=== PATIENT | male | born 1945 | race Caucasian/White ===

== ENCOUNTER 2017-01-24 12:38 | Day surgery (SDC) | payer MEDICARE ==
[~2017-01-24 12:38] MED LIST: ASPI-110 PO; CARA1SUS3 PO; DICL0.1S RIGHT EYE; GLYB2.5T3 PO; MAGICADU2 SWISH-SWAL; METF1000 PO; METO100T PO; MORP1TAB24 PO; PANT40TA3 PO
[2017-01-24] MEDS ORDERED: SITA1TAB2 PO (13:26)
[2017-01-24 13:29] VITALS: BP 132/64; PULSE 74; RESP 20; TEMP 96.7; O2SAT 100
--- NOTE | 2017-01-24 14:19 | PD.RAD ---
Post Procedure Progress Note Pre Procedure Diagnosis: (1) Encounter for care related to Port-a-Cath Post Procedure Diagnosis: (1) Encounter for care related to Port-a-Cath Procedure Date: Jan 24, 2017 Supervising Radiologist: Som Gillespie JR Proceduralist/Assist: RT Goldie(R)() Anesthesia: Other Plan of Activity Patient to Unit: [facility]OPU Patient Condition: Good Additional Comments: Port injection shows no change from prior. Tip of catheter against wall of innominate vein. Will not allow blood return. No fibrin sheath. Ok to use. See PACS Report for procedural detail/treatment Jr. Jose Miguel,Som Paris MD Jan 24, 2017 14:19
[2017-01-24] MEDS ORDERED: IOHEXOL 350 MG/ML 50 ML BTL (for RAD DIAG) ONE (14:20)
[2017-01-24 14:25] VITALS: BP 121/57; PULSE 74; RESP 20; O2SAT 97
--- NOTE | 2017-01-24 16:05 | RADRPT ---
EXAM DATE/TIME: 01/24/2017 13:25 [facility] COMPARISON: CENTRAL VENOUS ACCESS DEVICE PATENCY W/SVC, June 29, 2016, 14:26. INDICATIONS : Patient with a history of non-functioning port. Unable to get blood return. Assess catheter. Catheter was placed at an outlying institution. MEDICAL HISTORY : Metastatic non small lung carcinoma severe esophagitis esophageal stricture DM HTN SURGICAL HISTORY : Hernia repair Port placement Peg tube placement Esophageal dilation Cataract removal Colonscopy Lung biopsy Appendectomy ENCOUNTER: Subsequent ACUITY: 1 year PAIN SCORE: 8/10 LOCATION: Back FLUORO TIME: 0.5 minutes IMAGE SERIES: 5 CONTRAST: 10 cc Omnipaque (iohexol) 350 PROCEDURE : 1. Access of Cvqibs-z-lqic. 2. Port patency injection. The risks, benefits and alternatives to the procedure were explained and verbal and written consent w as obtained. The patient was placed supine. The port was prepped in sterile fashion. Full sterile t echnique was used, including cap, mask, sterile gloves and gown, and a large sterile sheet. Hand hyg iene and 2% chlorhexidine prep was utilized per protocol for cutaneous antisepsis with appropriate dr y time for site. The previously placed port was accessed and positive contrast was injected for evaluation. Injection demonstrates no change from the prior study. The tip of the catheter abuts the right lateral wall at the junction of the innominate and brachiocephalic veins. This will prevent good blood aspiration. T he catheter tip is within the vascular space. No extravasation is observed to suggest a leak. The cat heter was flushed with heparin solution prior to and Martinez needle removal. CONCLUSION: No change with the tip of the catheter abutting the wall of the junction of the innominate vein and b rachiocephalic vein. This will prevent good blood return. To attempt to get blood return consideratio n could be made to patient position changes starting with right lateral decubitus. This may or may no t allow blood return. In order to regain aspiration ability with this catheter the tip will need to b e repositioned appropriately to the cavoatrial junction. Som Gillespie Jr., MD on January 24, 2017 at 15:59 Board Certified Radiologist. This report was verified electronically.
[2017-02-16] MEDS ORDERED: LOPE2CAP PO (09:59)
[2017-02-16] MEDS ORDERED: COMFSUS2 (09:59)
[2017-02-16] MEDS ORDERED: ONDA1TAB16 (09:59)
[2017-02-16] MEDS ORDERED: DILA2TAB2 PO (11:30)
== END 2017-01-24 14:30 | disposition home or self-care (01) ==
LOC: HROP 12:38 → HRIP 12:40 → HROP 14:30
PROVIDERS: ATTEND Internal Medicine Hematology & Oncology
DX: Z45.2 Encounter for adjustment and management of vascular access device (principal); C34.90 Malignant neoplasm of unspecified part of unspecified bronchus or lung; E11.9 Type 2 diabetes mellitus without complications; I10 Essential (primary) hypertension
CPT/HCPCS: 36598; J1642; Q9967

== ENCOUNTER 2017-03-14 19:31 | Inpatient (IN) | payer MEDICARE ==
[~2017-03-14] VITALS: Ht 170.2 cm; Wt 58.0 kg
[~2017-03-14 19:31] MED LIST changes: -CARA1SUS3 PO; +COMFSUS2; +DILA2TAB2 PO; +LOPE2CAP PO; -MAGICADU2 SWISH-SWAL; +ONDA1TAB16; +SITA1TAB2 PO
[2017-03-14 19:34] VITALS: BP 119/55; PULSE 94; RESP 18; TEMP 98.5; O2SAT 99
--- NOTE | 2017-03-14 19:46 | PD ---
Physical Exam Time Seen by Provider: 19:43 Narrative 71 y/o male presents for evaluation of dislodged feeding tube. Happened this evening. Vital signs reviewed. Seen at triage desk. Awaiting bed placement. Data Data Last Documented VS Vital Signs Date Time Temp Pulse Resp B/P Pulse Ox O2 Delivery O2 Flow Rate FiO2 03/14/17 19:34 98.5 94 18 119/55 99 Room Air [facility] Medical Record Reviewed: Yes Supervised Visit with CAMERON: Bertram Morfin March 14, 2017 19:46
[2017-03-14 20:44] VITALS: BP 114/55; PULSE 84; RESP 18; O2SAT 99
[2017-03-14] MEDS ORDERED: [UNRECOGNIZED DRUG - CODE] PO (20:56)
[2017-03-14] MEDS ORDERED: SODIUM CHLOR 0.9% 1000 ML INJ 1,000 ML IV SCH (21:04)
[2017-03-14] MEDS ORDERED: ONDANSETRON HCL 4 MG/2 ML VIAL IV PUSH ONE (21:15)
--- NOTE | 2017-03-14 21:25 | PD ---
HPI Chief Complaint: GI Complaint Time Seen by Provider: 21:20 Travel History International Travel<30 days: No Contact w/Intl Traveler<30days: No Traveled to known affect area: No History of Present Illness HPI 71-year-old male that presents to the ED for evaluation of possible dislodgment of his feeding tube. Patient states that he has a feeding tube secondary to esophagitis with strictures that needs to be dilated about every 2-3 months. Patient also has cancer and has reduced intake of food by mouth. Patient continues to eat some solids but states that for the past couple months he's not been eating as much [place]. Patient states that he's had the tube since mid 2015. Per patient she's been using his feedings 3 times a day. Today he had a feeding around 5:00 and he decided that he was given a go to bed and when he was about to go to his bed he noted that he was leaking fluid and his tube was somewhat dislodged. It has not been used since. He states having some discomfort in the area. She also states that he's been somewhat nauseous. Per patient he had a bowel movement yesterday but no bowel movement today. Per patient he is passing gas. He has an allergy to ibuprofen and sulfa. Per patient the foot that sleeking is yellow. Per patient has minimal discomfort 2 out of 10. He states that Dr. Vieira placed the tube. He denies any fevers chills or sweats. PFSH Past Medical History Cancer: Yes (LUNG/BONE/BRAIN) Cardiovascular Problems: Yes (BP) High Cholesterol: Yes Chemotherapy: Yes (LAST CHEMO 03/03/2017) Diabetes: Yes (TYPE 2) Patient Takes Glucophage: Yes Endocrine: No Gastrointestinal Disorders: Yes (LESION REMOVED, NOT CANCEROUS/NAUSEA/CANT EAT) Genitourinary: No Hepatitis: No Hiatal Hernia: No Hypertension: Yes Immune Disorder: No Implanted Vascular Access Dvce: Yes Musculoskeletal: No Neurologic: Yes (CA METASTISIS BRAIN, LUNGS, BONE) Psychiatric: No Reproductive: No Respiratory: Yes (LOW ENERGY,SOB) Thyroid Disease: No Influenza Vaccination: Yes Past Surgical History Abdominal Surgery: Yes (colectomy 2011, INCISIONAL HERNIA REPAIR 2014, APPY 1970) AICD: No Appendectomy: Yes Arteriovenous Shunt: No Cardiac Surgery: No Ear Surgery: No Endocrine Surgery: No Eye Surgery: Yes (cataract removal right eye 2012) Genitourinary Surgery: No Insulin Pump: No Joint Replacement: No Neurologic Surgery: No Pacemaker: No Thoracic Surgery: Yes (INFUSAPORT) Other Surgery: Yes Social History Alcohol Use: No Tobacco Use: No (QUIT 1991) Substance Use: No Allergies-Medications (Allergen,Severity, Reaction): Coded Allergies: Sulfa (Unverified Allergy, Severe, LIP SWELLING, 03/14/17) Ibuprofen (Verified Allergy, Unknown, "DOESN'T REMEMBER", 03/14/17) pt states made his potassium level extremely raise Reported Meds & Prescriptions Reported Meds & Active Scripts Active Reported Levorphanol (Levorphanol Tartrate) 2 Mg Tab 4 Mg PO Q6HR PRN Comfort Gel Liq (Mvzgxbfg-Wvmfwxmud-Fueosgnhaza Liq) 200-200-20 Mg/5 Ml Susp Ondansetron (Ondansetron HCl) 4 Mg Tab Loperamide (Loperamide HCl) 2 Mg Cap 2 Mg PO DIRECTED PRN One capsule after each loose stool. Not to exceed 8 capsules per day. Januvia (Sitagliptin Phosphate) 100 Mg Tab 100 Mg PO HS Pantoprazole (Pantoprazole Sodium) 40 Mg Tab 40 Mg PO DAILY Morphine ER (Morphine Sulfate) 15 Mg Tab 15 Mg PO BID Diclofenac Opth Drops Unknown Strength Soln Unknown Dose RIGHT EYE BID Aspirin 81 (Aspirin) 81 Mg Tabdr 81 Mg PO DAILY Glyburide Unknown Strength Tab Unknown Dose PO DAILY Take with meals at the same time each day Metoprolol Tartrate 100 Mg Tab 100 Mg PO BID Metformin (Metformin HCl) Unknown Strength Tab Unknown Dose PO BIDPC With meals Review of Systems Except as stated in HPI: all other systems reviewed are Neg Physical Exam Narrative GENERAL: SKIN: Warm and dry. HEAD: Atraumatic. Normocephalic. EYES: Pupils equal and round. No scleral icterus. No injection or drainage. ENT: No nasal bleeding or discharge. Mucous membranes pink and moist. Tongue is midline. No uvula deviation. NECK: Trachea midline. No JVD. CARDIOVASCULAR: Regular rate and rhythm. No murmurs, S3, S4. RESPIRATORY: No accessory muscle use. Clear to auscultation. Breath sounds equal bilaterally. GASTROINTESTINAL: Abdomen soft, patient does have hardness noted on the right lower quadrant of the abdomen, feeding tube in place on the left upper quadrant. Appears to be not completely dislodged but some of it appears to be off leaking yellow fluid from the sites of the tube. Somewhat tender but not exquisitely tender., nondistended. Hepatic and splenic margins not palpable. MUSCULOSKELETAL: Extremities without clubbing, cyanosis, or edema. No obvious deformities. NEUROLOGICAL: Awake and alert. No obvious cranial nerve deficits. Motor grossly within normal limits. Five out of 5 muscle strength in the arms and legs. Normal speech. PSYCHIATRIC: Appropriate mood and affect; insight and judgment normal. Data Data Last Documented VS Vital Signs Date Time Temp Pulse Resp B/P Pulse Ox O2 Delivery O2 Flow Rate FiO2 03/14/17 22:07 95 Room Air 03/14/17 20:44 84 18 114/55 03/14/17 19:34 98.5 Orders Complete Blood Count With Diff (03/14/17 21:04) Comprehensive Metabolic Panel (03/14/17 21:04) Lipase (03/14/17 21:04) Lactic Acid (03/14/17 21:04) Prothrombin Time / Inr (Pt) (03/14/17 21:04) Act Partial Throm Time (Ptt) (03/14/17 21:04) Urinalysis - C+S If Indicated (03/14/17 21:04) Iv Access Insert/Monitor (03/14/17 21:04) Ecg Monitoring (03/14/17 21:04) Oximetry (03/14/17 21:04) NPO (03/14/17 21:04) Sodium Chlor 0.9% 1000 Ml Inj (Ns 1000 M (03/14/17 21:04) Ondansetron Inj (Zofran Inj) (03/14/17 21:15) Admit Order (Ed Use Only) (03/14/17 23:13) Ct Abd/Pel W/O Iv Contrast (03/14/17 ) Labs Laboratory Tests Test 03/14/17 21:55 White Blood Count 12.8 TH/MM3 Red Blood Count 3.00 MIL/MM3 Hemoglobin 8.5 GM/DL Hematocrit 26.7 % Mean Corpuscular Volume 89.1 FL Mean Corpuscular Hemoglobin 28.2 PG Mean Corpuscular Hemoglobin 31.7 % Concent Red Cell Distribution Width 15.9 % Platelet Count 297 TH/MM3 Mean Platelet Volume 9.0 FL Neutrophils (%) (Auto) 78.8 % Lymphocytes (%) (Auto) 5.7 % Monocytes (%) (Auto) 14.7 % Eosinophils (%) (Auto) 0.6 % Basophils (%) (Auto) 0.2 % Neutrophils # (Auto) 10.1 TH/MM3 Lymphocytes # (Auto) 0.7 TH/MM3 Monocytes # (Auto) 1.9 TH/MM3 Eosinophils # (Auto) 0.1 TH/MM3 Basophils # (Auto) 0.0 TH/MM3 CBC Comment DIFF FINAL Differential Comment Prothrombin Time 11.6 SEC Prothromb Time International 1.0 RATIO Ratio Activated Partial 29.8 SEC Thromboplast Time Sodium Level 139 MEQ/L Potassium Level 6.3 MEQ/L Chloride Level 107 MEQ/L Carbon Dioxide Level 25.8 MEQ/L Anion Gap 6 MEQ/L Blood Urea Nitrogen 66 MG/DL Creatinine 1.97 MG/DL Estimat Glomerular Filtration 34 ML/MIN Rate Random Glucose 118 MG/DL Lactic Acid Level 2.6 mmol/L Calcium Level 9.4 MG/DL Total Bilirubin 0.3 MG/DL Aspartate Amino Transf 61 U/L (AST/SGOT) Alanine Aminotransferase 42 U/L (ALT/SGPT) Alkaline Phosphatase 239 U/L Total Protein 7.7 GM/DL Albumin 2.8 GM/DL Lipase 82 U/L [facility] Medical Decision Making Medical Screen Exam Complete: Yes Emergency Medical Condition: Yes Medical Record Reviewed: Yes Interpretation(s) CBC Diagram 03/14/17 21:55 LFTS and lipase WNL BMP showed elevated BUN and creatinine, worst from early february. Differential Diagnosis Feeding tube issue versus medical advice seizure versus obstruction versus overfeeding versus gastroparesis versus cancer Narrative Course 71-year-old male that presents to the ED for evaluation of possible feeding tube dislodgment. Patient was properly examined by me and my attending Dr. Lua. Patient was found appears to have possible obstruction. Patient had a feeding around 5:00 and he still has a lot of fluid which is since that is what coming out of the tube. Tube appears to be slightly dislodged but still within the stoma and the fluid that seems to be coming out seems to be from the stomach. This time recommendations for doing imaging and labs. Patient was given Zofran and fluids as well. Patient will have flushing and suctioning of the contents of the stomach to help avoid more leakage. Patient and family in agreement with this plan. Labs and imaging showed acute kidney injury, leukocystosis and hyperkalmeia. Case discussed with my attending Dr Lua who recommends admission for evaluation of feeding tube and electrolyte abnormalities. Dr Ruvalcaba agrees to admit. Diagnosis Primary Impression: Hyperkalemia Additional Impressions: Acute kidney injury Feeding tube dysfunction Qualified Code: T85.598A - Feeding tube dysfunction, initial encounter Admitting Information Admitting Physician Requests: Admit Iam Cortes March 14, 2017 21:24
[2017-03-14 22:07] VITALS: O2SAT 95
[2017-03-14 22:29] LABS: AUTOMATED NEUTROPHIL # 10.1 TH/MM3 (1.8-7.7); BASOPHIL % 0.2 % (0.0-2.0); EOSINOPHIL # 0.1 TH/MM3 (0-0.4); EOSINOPHIL % 0.6 % (0.0-4.0); HEMATOCRIT 26.7 % (39.0-51.0); HEMO FLAGS DIFF FINAL; LYMPH % 5.7 % (9.0-44.0); LYMPHOCYTE # 0.7 TH/MM3 (1.0-4.8); MEAN CELL VOLUME 89.1 FL (80.0-100.0); MEAN CORPUSCULAR HEMOGLOBIN 28.2 PG (27.0-34.0); MEAN CORPUSCULAR HGB CONC 31.7 % (32.0-36.0); MONO % 14.7 % (0.0-8.0); NEUT % 78.8 % (16.0-70.0); PLATELET COUNT 297 TH/MM3 (150-450); RED CELL DISTRIBUTION WIDTH 15.9 % (11.6-17.2); WHITE BLOOD COUNT 12.8 TH/MM3 (4.0-11.0)
--- NOTE | 2017-03-14 22:30 | PD ---
Data Data Last Documented VS Vital Signs Date Time Temp Pulse Resp B/P Pulse Ox O2 Delivery O2 Flow Rate FiO2 03/14/17 22:07 95 Room Air 03/14/17 20:44 84 18 114/55 03/14/17 19:34 98.5 Orders Complete Blood Count With Diff (03/14/17 21:04) Comprehensive Metabolic Panel (03/14/17 21:04) Lipase (03/14/17 21:04) Lactic Acid (03/14/17 21:04) Prothrombin Time / Inr (Pt) (03/14/17 21:04) Act Partial Throm Time (Ptt) (03/14/17 21:04) Urinalysis - C+S If Indicated (03/14/17 21:04) Iv Access Insert/Monitor (03/14/17 21:04) Ecg Monitoring (03/14/17 21:04) Oximetry (03/14/17 21:04) NPO (03/14/17 21:04) Sodium Chlor 0.9% 1000 Ml Inj (Ns 1000 M (03/14/17 21:04) Ondansetron Inj (Zofran Inj) (03/14/17 21:15) Admit Order (Ed Use Only) (03/14/17 23:13) Ct Abd/Pel W/O Iv Contrast (03/14/17 ) Labs Laboratory Tests Test 03/14/17 21:55 White Blood Count 12.8 TH/MM3 Red Blood Count 3.00 MIL/MM3 Hemoglobin 8.5 GM/DL Hematocrit 26.7 % Mean Corpuscular Volume 89.1 FL Mean Corpuscular Hemoglobin 28.2 PG Mean Corpuscular Hemoglobin 31.7 % Concent Red Cell Distribution Width 15.9 % Platelet Count 297 TH/MM3 Mean Platelet Volume 9.0 FL Neutrophils (%) (Auto) 78.8 % Lymphocytes (%) (Auto) 5.7 % Monocytes (%) (Auto) 14.7 % Eosinophils (%) (Auto) 0.6 % Basophils (%) (Auto) 0.2 % Neutrophils # (Auto) 10.1 TH/MM3 Lymphocytes # (Auto) 0.7 TH/MM3 Monocytes # (Auto) 1.9 TH/MM3 Eosinophils # (Auto) 0.1 TH/MM3 Basophils # (Auto) 0.0 TH/MM3 CBC Comment DIFF FINAL Differential Comment Prothrombin Time 11.6 SEC Prothromb Time International 1.0 RATIO Ratio Activated Partial 29.8 SEC Thromboplast Time Sodium Level 139 MEQ/L Potassium Level 6.3 MEQ/L Chloride Level 107 MEQ/L Carbon Dioxide Level 25.8 MEQ/L Anion Gap 6 MEQ/L Blood Urea Nitrogen 66 MG/DL Creatinine 1.97 MG/DL Estimat Glomerular Filtration 34 ML/MIN Rate Random Glucose 118 MG/DL Lactic Acid Level 2.6 mmol/L Calcium Level 9.4 MG/DL Total Bilirubin 0.3 MG/DL Aspartate Amino Transf 61 U/L (AST/SGOT) Alanine Aminotransferase 42 U/L (ALT/SGPT) Alkaline Phosphatase 239 U/L Total Protein 7.7 GM/DL Albumin 2.8 GM/DL Lipase 82 U/L [facility] Medical Record Reviewed: Yes Supervised Visit with CAMERON: Yes Interpretation(s) Last Impressions Abdomen/Pelvis CT 03/14/17 0000 Signed Impressions: Service Date/Time: Tuesday, March 14, 2017 23:45 - CONCLUSION: 1. PEG tube in place with the tip in the mid stomach with balloon in place. The stomach is decompressed and there is no oral contrast. There is no evidence of an abscess or abnormal fluid collection. 2. Metastatic disease throughout the liver. 3. Osseous metastatic disease as well. 4. Left inguinal hernia containing a loop of bowel. There is no definite obstruction. 5. Nonspecific, nonobstructive bowel gas pattern most consistent with an ileus. 6. Multiple calcified gallstones. 7. Status post anterior abdominal wall hernia repair with mesh in place. Samir Foley MD Narrative Course I, Dr. Lua, have reviewed the advance practice practitioner's documentation and am in agreement, met with the patient face to face, made the diagnosis, and the medical decision making was done by me. The patient was initially evaluated by Parvez. Please see his complete history and physical. *My assessment and Findings: The patient is a 71-year-old male who presents to [facility] emergency Department with a history of fluid coming out of the area around his G-tube since just prior to arrival. He reports that he was in the process of preparing for bed and he noticed that there was a significant amount of leakage around the tube. He reports that he lacerated tube feeding at 5 PM. He reports that he does intermittent tube feedings. He reports that he has not been taking much by mouth recently due to increased nausea. The patient's history is complicated by having a history of cancer and esophagitis with recurrent esophageal strictures that required dilatation every 2-3 months. The patient has had the feeding tube for approximately a year. The patient reports that he last had a feeding tube changed by in September. The patient's examination was remarkable for significant amount of leakage around the G-tube that consisted of bile mixed with tube. There was tube feed also coming up into the device itself that was. The patient was initially examined approximately 4 hours after his last tube feed, therefore there is a concern about such high residuals in this patient. This could be related to an ileus, versus bowel obstruction. Laboratory studies, imaging studies were ordered. The patient will have the tube feed suctioned and bandage reapplied. The patients results were discussed with the patient, including the plan of care. I explained that further testing and/ or monitoring is indicated based on the patients history, examination, and/ or laboratory findings. Therefore, I recommended admission for additional evaluation. The patient expressed understanding and was agreeable with this plan. The patient was admitted to the hospital in stable condition and [facility] Diagnosis Primary Impression: Ileus Additional Impression: Feeding tube dysfunction Qualified Code: T85.598A - Feeding tube dysfunction, initial encounter Admitting Information Admitting Physician Requests: Admit Mya Lua MD March 14, 2017 22:30
[2017-03-14 22:45] LABS: ALT (GPT) 42 U/L (12-78); ANION GAP 6 MEQ/L (5-15); AST (GOT) 61 U/L (15-37); BICARBONATE 25.8 MEQ/L (21.0-32.0); BLOOD UREA NITROGEN 66 MG/DL (7-18); CHLORIDE 107 MEQ/L (98-107); GLOMERULAR FILTRATION RATE 34 ML/MIN (>89); POTASSIUM 6.3 MEQ/L (3.5-5.1); SODIUM (NA) 139 MEQ/L (136-145)
[2017-03-14 22:46] LABS: ALKALINE PHOSPHATASE 239 U/L (45-117); TOTAL BILIRUBIN ADULT 0.3 MG/DL (0.2-1.0)
[2017-03-14 23:02] LABS: APTT (PATIENT) 29.8 SEC (24.3-30.1); PROTHROMBIN TIME - PATIENT 11.6 SEC (9.8-11.6)
[2017-03-14] MEDS ORDERED: SODIUM CHLORIDE 0.9% FLUSH 10 ML FLUSH IV FLUSH PRN (23:15)
[2017-03-14] MEDS ORDERED: NALOXONE HCL 0.4 MG/ML AMP IV PRN (23:15)
[2017-03-14] MEDS: SODIUM CHLOR 0.9% 1000 ML INJ 1,000 ML IV SCH (23:45)
[2017-03-15] VITALS (10 sets, daily range): BP systolic 103–129; BP diastolic 53–62; PULSE 85–104; RESP 15–20; TEMP 96.6–98.5; O2SAT 94–98
--- NOTE | 2017-03-15 00:27 | RADRPT ---
EXAM DATE/TIME: 03/14/2017 23:45 [facility] COMPARISON: CT ABDOMEN & PELVIS W CONTRAST, July 11, 2015, 5:40. INDICATIONS : Abdomen pain with redness around Peg tube. Known metastatic cancer. ORAL CONTRAST: No oral contrast ingested. RADIATION DOSE: 9.04 CTDIvol (mGy) MEDICAL HISTORY : Diabetes mellitus type 2. Hypertension. Lung, bone and brain cancer. Chemotherapy. SURGICAL HISTORY : Appendectomy. Hernia repair. Peg tube placement. Infusaport. ENCOUNTER: Initial ACUITY: 1 day PAIN SCALE: 0/10 LOCATION: All quadrants. TECHNIQUE: Volumetric scanning of the abdomen and pelvis was performed. Using automated exposure control and ad justment of the mA and/or kV according to patient size, radiation dose was kept as low as reasonably achievable to obtain optimal diagnostic quality images. FINDINGS: LOWER LUNGS: There are minimal pleural effusions and thickening in the medial lung bases. LIVER: Diffuse metastatic disease is noted throughout the liver with multiple low attenuation masses. The li karina is enlarged. There are multiple calcified gallstones layering dependently in the gallbladder. SPLEEN: Normal size without lesion. PANCREAS: Within normal limits. KIDNEYS: Normal in size and shape. There is no mass, stone, or hydronephrosis. ADRENAL GLANDS: Within normal limits. VASCULAR: There is no aortic aneurysm. BOWEL/MESENTERY: There is a PEG tube in place in the mid stomach with intact balloon. The stomach is poorly delineated due to lack of contrast. The stomach is decompressed as well. There are multiple loops of nondilated air-containing small bowel in the anterior lower abdomen upper pelvis with several small air-fluid l evels. As noted segmentally in the colon. There is no free intraperitoneal air or fluid. ABDOMINAL WALL: The patient is status post anterior abdominal wall hernia repair with mesh in place. RETROPERITONEUM: There is no lymphadenopathy. BLADDER: No wall thickening or mass. REPRODUCTIVE: Within normal limits. INGUINAL: There is a left inguinal hernia which contains a loop of bowel. MUSCULOSKELETAL: Osteopenia, degenerative change and mild scoliosis are present. There is evidence of blastic metastas is involving the T10 vertebral body. There is evidence of metastatic disease involving the left ilium with blastic and lytic lesions as well. CONCLUSION: 1. PEG tube in place with the tip in the mid stomach with balloon in place. The stomach is decompress ed and there is no oral contrast. There is no evidence of an abscess or abnormal fluid collection.2. Metastatic disease throughout the liver. 3. Osseous metastatic disease as well. 4. Left inguinal hernia containing a loop of bowel. There is no definite obstruction. 5. Nonspecific, nonobstructive bowel gas pattern most consistent with an ileus. 6. Multiple calcified gallstones. 7. Status post anterior abdominal wall hernia repair with mesh in place. Samir Foley MD on March 15, 2017 at 0:18 Board Certified Radiologist. This report was verified electronically.
[2017-03-15] MEDS ORDERED: MORPHINE SULFATE 4 MG/ML INJ IV PUSH ONE (00:30)
[2017-03-15] MEDS ORDERED: ONDANSETRON HCL 4 MG/2 ML VIAL IV PUSH ONE (00:30)
[2017-03-15] MEDS ORDERED: DEXTROSE 50% IN WATER 50 ML VIAL(D50) IV PUSH ONE (02:15)
[2017-03-15] MEDS ORDERED: SODIUM POLYSTYRENE SULFONATE SUSP 15 GM/60 ML CUP PO ONE (02:15)
[2017-03-15] MEDS ORDERED: MORPHINE SULFATE 4 MG/ML INJ IV PUSH PRN (02:15)
[2017-03-15] MEDS ORDERED: INSULIN HUMAN REGULAR 1,000 UNITS/10 ML VIAL IV PUSH ONE (02:15)
[2017-03-15] MEDS ORDERED: CALCIUM GLUCONATE 10% 1 GM/10 ML VIAL IV PUSH ONE (02:15)
[2017-03-15] MEDS: ONDANSETRON HCL 4 MG/2 ML VIAL IVP PRN ×2 (02:48→09:18)
--- NOTE | 2017-03-15 04:27 | HHI.HP ---
HPI Service [facility] Primary Care Physician Jane Treviño MD Admission Diagnosis acute kidney injury, hyperkalemia, cancer pt Diagnoses: Chief Complaint: "my feeding tube fell out" Travel History International Travel<30 Days: No Contact w/Intl Traveler <30 Da: No Traveled to Known Affected Are: No History of Present Illness Written by Silvana Hermosillo, acting as scribe for Dr. Ruvalcaba on 03/15/17 at 04:27. Mr. 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 Abdomen/pelvis CT in the ER shows PEG tube in place with tip in the mid stomach with balloon in place and nonobstructive bowel gas pattern most consistent with an ileus; labs studies show leukocytosis, acute renal failure, lactic acidosis, and hyperkalemia. He is admitted for medical management. Patient is seen in his hospital room. He states that he presented to the ER because he thought his feeding tube fell out yesterday. Denies fever, n/v/d black or bloody stool, hematuria, or dysuria. Reports pain at PEG tube insertion sight - states there is some redness and irritation there along with some yellow drainage. He takes some oral intake at home but also performs bolus tube feedings. The PEG tube was placed by Dr. Vieira 12/2015. Sees Dr. Shen - medical oncology. He underwent a PET scan one week ago and is awaiting results. . Review of Systems Except as stated in HPI: all other systems reviewed are Neg Past Family Social History Past Medical History Esophagitis with strictures requiring dilatation every 2-3 months Lung cancer with bone metastases - last chemotherapy 03/03/2017 Type 2 diabetes mellitus Hyperlipidemia Hypertension No heart problems, CHF, COPD, liver problems, kidney problems, blood clots in legs or lungs, CVA, seizures, thyroid problems . Past Surgical History Implanted vascular access device/[id number] Esophageal dilatation, multiple Colectomy 2012 - Dr. Gurrola Incisional hernia repair 2015 Appendectomy 1970 Right cataract surgery 2013 . Reported Medications Reported Meds & Active Scripts Active Reported Levorphanol (Levorphanol Tartrate) 2 Mg Tab 4 Mg PO Q6HR PRN Comfort Gel Liq (Euymbthv-Kyfuqncja-Yprhwpiwupm Liq) 200-200-20 Mg/5 Ml Susp Ondansetron (Ondansetron HCl) 4 Mg Tab Loperamide (Loperamide HCl) 2 Mg Cap 2 Mg PO DIRECTED PRN One capsule after each loose stool. Not to exceed 8 capsules per day. Januvia (Sitagliptin Phosphate) 100 Mg Tab 100 Mg PO HS Pantoprazole (Pantoprazole Sodium) 40 Mg Tab 40 Mg PO DAILY Morphine ER (Morphine Sulfate) 15 Mg Tab 15 Mg PO BID Diclofenac Opth Drops Unknown Strength Soln Unknown Dose RIGHT EYE BID Aspirin 81 (Aspirin) 81 Mg Tabdr 81 Mg PO DAILY Glyburide Unknown Strength Tab Unknown Dose PO DAILY Take with meals at the same time each day Metoprolol Tartrate 100 Mg Tab 100 Mg PO BID Metformin (Metformin HCl) Unknown Strength Tab Unknown Dose PO BIDPC With meals . Allergies: Coded Allergies: Sulfa (Verified Allergy, Severe, LIP SWELLING, 03/22/17) Ibuprofen (Verified Allergy, Unknown, "DOESN'T REMEMBER", 03/22/17) pt states made his potassium level extremely raise Active Ordered Medications Current Medications Sodium Chloride (NS 1000 ml Inj) 1,000 ml @ 1,000 mls/hr Q1H IV Last administered on 03/14/17 22:20; Start 03/14/17 at 21:04; Stop 03/14/17 at 22:03 ; Status DC Ondansetron HCl 4 mg 4 mg ONCE ONCE IV PUSH Last administered on 03/14/17 22: 20; Start 03/14/17 at 21:15; Stop 03/14/17 at 21:16; Status DC Sodium Chloride (NS 1000 ml Inj) 1,000 ml @ 100 mls/hr Q10H IV Last administered on 03/14/17 23:45; Start 03/14/17 at 23:11 Sodium Chloride (NS Flush) 2 ml UNSCH PRN IV FLUSH FLUSH AFTER USING IV ACCESS ; Start 03/14/17 at 23:15 Sodium Chloride (NS Flush) 2 ml BID IV FLUSH ; Start 03/15/17 at 09:00 Ondansetron HCl (Zofran Inj) 4 mg Q6H PRN IVP NAUSEA OR VOMITING Last administered on 03/15/17 02:48; Start 03/14/17 at 23:15 Naloxone HCl (Narcan Inj) 0.4 mg UNSCH PRN IV SEE LABEL COMMENTS; Start at 23:15 Morphine Sulfate (Morphine Inj) 4 mg ONCE ONCE IV PUSH Last administered on 00:41; Start 03/15/17 at 00:30; Stop 03/15/17 at 00:31; Status DC Ondansetron HCl (Zofran Inj) 4 mg ONCE ONCE IV PUSH Last administered on 00:41; Start 03/15/17 at 00:30; Stop 03/15/17 at 00:31; Status DC Sodium Polystyrene Sulfonate (Kayexalate Liq) 30 gm ONCE ONCE PO Last administered on 03/15/17 02:36; Start 03/15/17 at 02:15; Stop 03/15/17 at 02:16 ; Status DC Insulin Human Regular (NovoLIN R INJ) 10 units ONCE ONCE IV PUSH Last administered on 03/15/17 02:32; Start 03/15/17 at 02:15; Stop 03/15/17 at 02:16 ; Status DC Dextrose (D50w (Vial) Inj) 50 ml ONCE ONCE IV PUSH Last administered on 02:25; Start 03/15/17 at 02:15; Stop 03/15/17 at 02:16; Status DC Calcium Gluconate (Calcium Gluconate Inj) 1 gm ONCE ONCE IV PUSH Last administered on 03/15/17 02:26; Start 03/15/17 at 02:15; Stop 03/15/17 at 02:16 ; Status DC Morphine Sulfate (Morphine Inj) 2 mg Q3H PRN IV PUSH pain >5; Start 03/15/17 at 02:15 . Family History Mother with lymphoma Father with stomach CA/ Sister with ovarian cancer Brother with brain cancer . Social History Tobacco: Quit smoking in 1991 Alcohol: social drinking with none since 2015 . Physical Exam Vital Signs Vital Signs Date Time Temp Pulse Resp B/P Pulse Ox O2 Delivery O2 Flow Rate FiO2 03/15/17 02:09 96 03/15/17 01:30 98.1 90 18 129/62 98 03/15/17 00:24 98.5 85 15 113/59 97 Room Air 03/14/17 22:07 95 Room Air 03/14/17 20:44 84 18 114/55 99 Room Air 03/14/17 19:34 98.5 94 18 119/55 99 Room Air Physical Exam GENERAL: This is a severely cachectic, chronically ill-appearing male patient, in no apparent distress. SKIN: No rashes, ecchymoses or lesions. Cool and dry. HEAD: Atraumatic. Normocephalic. EYES: No scleral icterus. No injection or drainage. ENT: Nose without bleeding, purulent drainage. NECK: Trachea midline. No JVD or lymphadenopathy. CARDIOVASCULAR: Regular rate and rhythm without murmurs, gallops, or rubs. RESPIRATORY: Clear to auscultation. Breath sounds equal bilaterally. No wheezes , rales, or rhonchi. GASTROINTESTINAL: Abdomen soft, nondistended. No guarding. PEG to gravity drainage. Tenderness at PEG insertion site. MUSCULOSKELETAL: Extremities without clubbing, cyanosis, or edema. No calf tenderness. Diffuse muscle wasting is noted, including temporal wasting. NEUROLOGICAL: Awake and alert. Motor and sensory grossly within normal limits. Normal speech. . Laboratory Laboratory Tests Test 03/14/17 21:55 White Blood Count 12.8 Red Blood Count 3.00 Hemoglobin 8.5 Hematocrit 26.7 Mean Corpuscular Volume 89.1 Mean Corpuscular Hemoglobin 28.2 Mean Corpuscular Hemoglobin 31.7 Concent Red Cell Distribution Width 15.9 Platelet Count 297 Mean Platelet Volume 9.0 Neutrophils (%) (Auto) 78.8 Lymphocytes (%) (Auto) 5.7 Monocytes (%) (Auto) 14.7 Eosinophils (%) (Auto) 0.6 Basophils (%) (Auto) 0.2 Neutrophils # (Auto) 10.1 Lymphocytes # (Auto) 0.7 Monocytes # (Auto) 1.9 Eosinophils # (Auto) 0.1 Basophils # (Auto) 0.0 CBC Comment DIFF FINAL Differential Comment Prothrombin Time 11.6 Prothromb Time International 1.0 Ratio Activated Partial 29.8 Thromboplast Time Sodium Level 139 Potassium Level 6.3 Chloride Level 107 Carbon Dioxide Level 25.8 Anion Gap 6 Blood Urea Nitrogen 66 Creatinine 1.97 Estimat Glomerular Filtration 34 Rate Random Glucose 118 Lactic Acid Level 2.6 Calcium Level 9.4 Total Bilirubin 0.3 Aspartate Amino Transf 61 (AST/SGOT) Alanine Aminotransferase 42 (ALT/SGPT) Alkaline Phosphatase 239 Total Protein 7.7 Albumin 2.8 Lipase 82 Result Diagram: 03/14/17215403/14/172154 Imaging Last Impressions Abdomen/Pelvis CT 03/14/17 0000 Signed Impressions: Service Date/Time: Tuesday, March 14, 2017 23:45 - CONCLUSION: 1. PEG tube in place with the tip in the mid stomach with balloon in place. The stomach is decompressed and there is no oral contrast. There is no evidence of an abscess or abnormal fluid collection. 2. Metastatic disease throughout the liver. 3. Osseous metastatic disease as well. 4. Left inguinal hernia containing a loop of bowel. There is no definite obstruction. 5. Nonspecific, nonobstructive bowel gas pattern most consistent with an ileus. 6. Multiple calcified gallstones. 7. Status post anterior abdominal wall hernia repair with mesh in place. Samir Foley MD . Assessment and Plan Assessment and Plan Mr. Campbell is a 71 year-old male who presented to the ER on 03/14/17 to be evaluated for a possibly dislodged PEG tube. Abdomen/pelvis CT in the ER shows PEG tube in place with tip in the mid stomach with balloon in place and nonobstructive bowel gas pattern most consistent with an ileus; labs studies show leukocytosis, acute renal failure, lactic acidosis, and hyperkalemia. He is admitted for management. Feeding tube dysfunction and Ileus - Zofran 4 mg IV push every 6 hours as needed for nausea and vomiting - Monitor closely - consult Dr. Vieira/GI Leukocytosis with neutrophilia and monocytosis - possible source of infection - PEG insertion site - WBC 12.8 on admission and 15.0 on repeat - Levaquin 750 mg IV q24 h - Recheck CBC in a.m. and follow trends Lactic acidosis - Initial lactic acid level 2.6 - Patient is received IV fluid bolus with normal saline and maintenance IV - Recheck level and follow results Acute renal failure most likely secondary to dehydration - BUN 66, creatinine 1.97, estimated GFR 34 - Normal saline IV fluid bolus 1 L followed by maintenance IV at 100 cc per hour - Repeat BMP in a.m. and follow trends in renal indices - Avoid nephrotoxins Hyperkalemia - Initial potassium 6.3 - IV insulin, D50 W, calcium gluconate, and Kayexalate - Recheck potassium and follow results Transaminitis - AST 61 - Elevation likely secondary to liver metastasis Metastatic lung cancer - Consult physical therapy to avoid further debility - Dilaudid 0.2 mg IV push every 4 hours as needed for pain DVT prophylaxis - Heparin 5000 units subq q8h . This note was transcribed by mindi [Silvana Hermosillo]. I, Dr. Neha Ruvalcaba personally performed the history, physical exam, and medical decision making; and confirmed the accuracy of the information in the transcribed note. Authenticated by Dr. Neha Ruvalcaba on 03/15/17 0620 Code Status DNR - per discussion with patient . Discussed Condition With ER physician and patient . Physician Certification 2 Midnight Certification Type: Admission for Inpatient Services Order for Inpatient Services The services are ordered in accordance with Medicare regulations or non- Medicare payer requirements, as applicable. In the case of services not specified as inpatient-only, they are appropriately provided as inpatient services in accordance with the 2-midnight benchmark. Estimated LOS (days): 3 days is the estimated time the patient will need to remain in the hospital, assuming treatment plan goals are met and no additional complications. Post-Hospital Plan: Not yet determined Silvana Hermosillo March 15, 2017 04:27 Neha Ruvalcaba MD Apr 10, 2017 12:31
[2017-03-15 04:30] LABS: AUTOMATED NEUTROPHIL # 12.2 TH/MM3 (1.8-7.7); BASOPHIL % 0.2 % (0.0-2.0); EOSINOPHIL # 0.1 TH/MM3 (0-0.4); EOSINOPHIL % 0.4 % (0.0-4.0); HEMATOCRIT 27.9 % (39.0-51.0); HEMO FLAGS DIFF FINAL; LYMPHOCYTE # 0.8 TH/MM3 (1.0-4.8); MEAN CELL VOLUME 89.3 FL (80.0-100.0); MEAN CORPUSCULAR HEMOGLOBIN 27.8 PG (27.0-34.0); MEAN CORPUSCULAR HGB CONC 31.2 % (32.0-36.0); MONO % 12.9 % (0.0-8.0); NEUT % 81.5 % (16.0-70.0); PLATELET COUNT 346 TH/MM3 (150-450); RED BLOOD COUNT 3.12 MIL/MM3 (4.50-5.90); RED CELL DISTRIBUTION WIDTH 16.1 % (11.6-17.2)
[2017-03-15 05:00] LABS: BICARBONATE 25.3 MEQ/L (21.0-32.0); POTASSIUM 4.9 MEQ/L (3.5-5.1)
[2017-03-15] MEDS: HYDROmorphone HCL PF 1 MG/ML VIAL IV PUSH PRN ×5 (05:04→23:40)
[2017-03-15] MEDS ORDERED: LEVOFLOXACIN 750 MG PREMIX INJ 150 ML IV SCH (06:30)
[2017-03-15] MEDS: HEPARIN SODIUM - SQ 10,000 UNITS/ML VIAL SQ SCH ×3 (06:46→22:18)
[2017-03-15] MEDS: SODIUM CHLORIDE 0.9% FLUSH 10 ML FLUSH IV FLUSH SCH ×2 (07:39→21:00)
--- NOTE | 2017-03-15 10:26 | PD.CONS ---
HPI History of Present Illness This is a 71 year old male patient with a history of metastatic lung cancer and a long history of oropharyngeal dysphagia and esophageal strictures secondary to radiation therapy, dependent on PEG tube feeding for nutrition. He states that he has been having issues with the PEG tube leaking and that he has had to have this exchanged from time to time. The last exchange was in September of 2016 with a #24 tamazight replacement gastrostomy tube. He states that lately, he has been able to take po, soft foods such as shakes, cottage cheese, and peaches and using the tube for supplements. For the past week, he has not been feeling well and having nausea and decreased appetite and therefore he has strictly been using the feeding tube. He has been having issues with the tube leaking and being tender and erythematous for a few weeks. It is currently draining a large amount of purulent drainage. He has tenderness around the tube itself. He also has a history of gastric ulcer. His last EGD with dilatation was (12/30/16)-----> Peg tube in place, esophagitis midesophagus, stricture mid esophagus, retroflexed views revealed a medium hiatal hernia. Pathology revealed acute esophagitis with acute ulcer, candidiasis. He was treated with diflucan, protonix, and carafate. He is being followed by Dr. Shen for his metastatic hhx-sdzzc-baoc lung cancer. He was originally diagnosed in June of 2015 and is s/p radiation and chemotherapy in the past. He is currently being treated with chemotherapy every other week, ? nivolumab. He reports that he last had this on March 03. PFS Past Medical History Esophagitis with strictures requiring dilatation every 2-3 months Lung cancer with bone metastases - last chemotherapy 03/03/2017 Type 2 diabetes mellitus Hyperlipidemia Hypertension Colon polyps- last colonoscopy was 02/06/[address] Gurrola, sessile polyp descending colon. Oropharyngeal dysphagia Esophagitis. Gastric ulcer GERD Nephrolithiasis Malnutrition Ventral hernia History of rheumatic fever Past Surgical History Implanted vascular access device/[id number] Esophageal dilatation, multiple Colectomy 2011 - Dr. Gurrola Incisional hernia repair 2014 Appendectomy 1970 Right cataract surgery 2013 Vasectomy EGD Colonoscopy Coded Allergies: Sulfa (Unverified Allergy, Severe, LIP SWELLING, 03/14/17) Ibuprofen (Verified Allergy, Unknown, "DOESN'T REMEMBER", 03/14/17) pt states made his potassium level extremely raise Medications Allergies Coded Allergies Type Severity Reaction Last Updated Verified Sulfa Allergy Severe LIP SWELLING 03/14/17 No Ibuprofen Allergy Unknown "DOESN'T REMEMBER" 03/14/17 Yes Active Scripts Medications Dose Route/Sig Days Date Category Dose Instructions Levorphanol (Levorphanol Tartrate) 2 Mg Tab 4 Mg PO Q6HR PRN 03/14/17 Reported Comfort Gel Liq (Pldefxar-Zgbhnyjew-Axlpvbcvmlo Liq) 200-200-20 Mg/5 Ml Susp 02/16/17 Reported Ondansetron (Ondansetron HCl) 4 Mg Tab 02/16/17 Reported Loperamide (Loperamide HCl) 2 Mg Cap 2 Mg PO DIRECTED PRN 02/16/17 Reported One capsule after each loose stool. Not to exceed 8 capsules per day. Januvia (Sitagliptin Phosphate) 100 Mg Tab 100 Mg PO HS 01/24/17 Reported Pantoprazole (Pantoprazole Sodium) 40 Mg Tab 40 Mg PO DAILY 09/12/16 Reported Morphine ER (Morphine Sulfate) 15 Mg Tab 15 Mg PO BID 09/12/16 Reported Diclofenac Opth Drops Unknown Strength Soln Unknown Dose RIGHT EYE BID 09/12/16 Reported Aspirin 81 (Aspirin) 81 Mg Tabdr 81 Mg PO DAILY 09/12/16 Reported Glyburide Unknown Strength Tab Unknown Dose PO DAILY 09/12/16 Reported Take with meals at the same time each day Metoprolol Tartrate 100 Mg Tab 100 Mg PO BID 09/12/16 Reported Metformin (Metformin HCl) Unknown Strength Tab Unknown Dose PO BIDPC 09/12/16 Reported With meals Family History Mother with lymphoma Father with stomach CA Sister with ovarian cancer Brother with brain cancer Social History Quit smoking in 1991 Social drinking with none since 2016 Review of Systems Constitutional: COMPLAINS OF: Fatigue, Weight loss, Change in appetite Respiratory: DENIES: Cough Cardiovascular: DENIES: Chest pain Gastrointestinal: COMPLAINS OF: Abdominal pain (tenderness at peg tube site), Nausea, Difficulty Swallowing, Anorexia, Odynophagia, Heartburn, DENIES: Vomiting Integumentary: DENIES: Abnormal pigmentation Neurologic: DENIES: Headache Psychiatric: DENIES: Confusion GI Exam Vitals I&O Vital Signs Date Time Temp Pulse Resp B/P Pulse Ox O2 Delivery O2 Flow Rate FiO2 03/15/17 08:00 98.2 100 20 103/57 95 03/15/17 02:09 96 03/15/17 01:30 98.1 90 18 129/62 98 03/15/17 00:24 98.5 85 15 113/59 97 Room Air 03/14/17 22:07 95 Room Air 03/14/17 20:44 84 18 114/55 99 Room Air 03/14/17 19:34 98.5 94 18 119/55 99 Room Air I/O 03/14/17 03/14/17 03/14/17 03/15/17 03/15/17 03/15/17 07:00 15:00 23:00 07:00 15:00 23:00 Intake Total 600 ml Balance 600 ml Intake IV Total 600 ml Imaging Last Impressions Abdomen/Pelvis CT 03/14/17 0000 Signed Impressions: Service Date/Time: Tuesday, March 14, 2017 23:45 - CONCLUSION: 1. PEG tube in place with the tip in the mid stomach with balloon in place. The stomach is decompressed and there is no oral contrast. There is no evidence of an abscess or abnormal fluid collection. 2. Metastatic disease throughout the liver. 3. Osseous metastatic disease as well. 4. Left inguinal hernia containing a loop of bowel. There is no definite obstruction. 5. Nonspecific, nonobstructive bowel gas pattern most consistent with an ileus. 6. Multiple calcified gallstones. 7. Status post anterior abdominal wall hernia repair with mesh in place. Samir Foley MD Laboratory Test 03/14/17 03/15/17 21:55 04:19 White Blood Count 12.8 TH/MM3 15.0 TH/MM3 Red Blood Count 3.00 MIL/MM3 3.12 MIL/MM3 Hemoglobin 8.5 GM/DL 8.7 GM/DL Hematocrit 26.7 % 27.9 % Mean Corpuscular Volume 89.1 FL 89.3 FL Mean Corpuscular Hemoglobin 28.2 PG 27.8 PG Mean Corpuscular Hemoglobin 31.7 % 31.2 % Concent Red Cell Distribution Width 15.9 % 16.1 % Platelet Count 297 TH/MM3 346 TH/MM3 Mean Platelet Volume 9.0 FL 8.7 FL Neutrophils (%) (Auto) 78.8 % 81.5 % Lymphocytes (%) (Auto) 5.7 % 5.0 % Monocytes (%) (Auto) 14.7 % 12.9 % Eosinophils (%) (Auto) 0.6 % 0.4 % Basophils (%) (Auto) 0.2 % 0.2 % Neutrophils # (Auto) 10.1 TH/MM3 12.2 TH/MM3 Lymphocytes # (Auto) 0.7 TH/MM3 0.8 TH/MM3 Monocytes # (Auto) 1.9 TH/MM3 1.9 TH/MM3 Eosinophils # (Auto) 0.1 TH/MM3 0.1 TH/MM3 Basophils # (Auto) 0.0 TH/MM3 0.0 TH/MM3 CBC Comment DIFF FINAL DIFF FINAL Differential Comment Prothrombin Time 11.6 SEC Prothromb Time International 1.0 RATIO Ratio Activated Partial 29.8 SEC Thromboplast Time Sodium Level 139 MEQ/L 142 MEQ/L Potassium Level 6.3 MEQ/L 4.9 MEQ/L Chloride Level 107 MEQ/L 108 MEQ/L Carbon Dioxide Level 25.8 MEQ/L 25.3 MEQ/L Anion Gap 6 MEQ/L 9 MEQ/L Blood Urea Nitrogen 66 MG/DL 62 MG/DL Creatinine 1.97 MG/DL 1.71 MG/DL Estimat Glomerular Filtration 34 ML/MIN 40 ML/MIN Rate Random Glucose 118 MG/DL 82 MG/DL Lactic Acid Level 2.6 mmol/L Calcium Level 9.4 MG/DL 9.2 MG/DL Total Bilirubin 0.3 MG/DL Aspartate Amino Transf 61 U/L (AST/SGOT) Alanine Aminotransferase 42 U/L (ALT/SGPT) Alkaline Phosphatase 239 U/L Total Protein 7.7 GM/DL Albumin 2.8 GM/DL Lipase 82 U/L Physical Examination HEENT: Normocephalic; atraumatic; no jaundice. CHEST: CTA CARDIAC: RRR ABDOMEN: Soft, nondistended, tenderness around gastrostomy tube site. Erythema and large amount purulent drainage from g tube site; no hepatosplenomegaly; bowel sounds are present in all four quadrants. EXTREMITIES: No clubbing, cyanosis, or edema. SKIN: Normal; no rash; no jaundice. UNDER CUTTER: Lethargic and oriented times three. Assessment and Plan Plan ASSESSMENT: - Nausea, decreased appetite, inability to take po x 1 week with hx of gabriela, esophageal strictures, gastric ulcer. Abdomen/Pelvis CT (03/14/17)----> 1. PEG tube in place with the tip in the mid stomach with balloon in place. The stomach is decompressed and there is no oral contrast. There is no evidence of an abscess or abnormal fluid collection. 2. Metastatic disease throughout the liver. 3. Osseous metastatic disease as well. 4. Left inguinal hernia containing a loop of bowel. There is no definite obstruction. 5. Nonspecific, nonobstructive bowel gas pattern most consistent with an ileus. 6. Multiple calcified gallstones. 7. Status post anterior abdominal wall hernia repair with mesh in place. Will plan for EGD with dilatation today. ? Gabriela esophagitis. PPI. Add Nystatin. - Oral Gabriela. Add Nystatin. - Infected Gastrostomy tube site. Erythema around tube, large amount of purulent drainage. On levaquin. Will get C/S. - Leukocytosis. Levaquin. - Anemia. .05/25.9. - LINDY, Creat 1.71. - Metastatic lung cancer. Followed by Dr. Shen for his metastatic non-small- cell lung cancer. He was originally diagnosed in June of 2015 and states he is s/p radiation and chemotherapy in the past. He is currently being treated with chemotherapy every other week, ? nivolumab. Last had this on March 03. PLAN: - Plan for EGD with dilatation and G tube exchange today - Obtain consents - NPO - Add Protonix - Add Nystatin - Cont. Levaquin - Send G tube site drainage for C/S - Further evaluation to follow after results of above - Pt seen and examined by Dr. Zuleta and myself and this note is written on his behalf Jackie Rivers March 15, 2017 10:26
[2017-03-15] MEDS ORDERED: PROPOFOL 200 MG/20 ML AMP IV ONE (12:18)
--- NOTE | 2017-03-15 13:16 | HHI.GIFU ---
Subjective Remarks Immediate postop note: EGD with esophageal dilatation over guidewire with PEG placement and removal of old PEG Indication: malfunctioning PEG tube. Medication: Propofol pt is on Levaquin Findings: Esophagus distal long stricture, dilated initially to gain access to stomach with 12mm savary dilator over guidewire Stomach: old PEG in the stomach, balloon intact. Duodenum could not be entered so balloon was deflated and removed. Duodenum could still not be entered. PEG tube placed in the tissue adjacent to the old site. After inside retainer confirmed in good spot, esophagus was dilated further to 12.8mm then 14mm. Relook exam showed successful dilatation without apparent complication. Objective Vitals I&O Vital Signs Date Time Temp Pulse Resp B/P Pulse Ox O2 Delivery O2 Flow Rate FiO2 03/15/17 11:58 98.2 100 20 103/57 95 03/15/17 08:00 98.2 100 20 103/57 95 03/15/17 02:09 96 03/15/17 01:30 98.1 90 18 129/62 98 03/15/17 00:24 98.5 85 15 113/59 97 Room Air 03/14/17 22:07 95 Room Air 03/14/17 20:44 84 18 114/55 99 Room Air 03/14/17 19:34 98.5 94 18 119/55 99 Room Air I/O 03/14/17 03/14/17 03/14/17 03/15/17 03/15/17 03/15/17 07:00 15:00 23:00 07:00 15:00 23:00 Intake Total 600 ml Output Total 150 ml Balance 600 ml -150 ml Intake IV Total 600 ml Output Urine Total 150 ml Laboratory Laboratory Tests Test 03/14/17 03/15/17 21:55 04:19 White Blood Count 12.8 15.0 Red Blood Count 3.00 3.12 Hemoglobin 8.5 8.7 Hematocrit 26.7 27.9 Mean Corpuscular Volume 89.1 89.3 Mean Corpuscular Hemoglobin 28.2 27.8 Mean Corpuscular Hemoglobin 31.7 31.2 Concent Red Cell Distribution Width 15.9 16.1 Platelet Count 297 346 Mean Platelet Volume 9.0 8.7 Neutrophils (%) (Auto) 78.8 81.5 Lymphocytes (%) (Auto) 5.7 5.0 Monocytes (%) (Auto) 14.7 12.9 Eosinophils (%) (Auto) 0.6 0.4 Basophils (%) (Auto) 0.2 0.2 Neutrophils # (Auto) 10.1 12.2 Lymphocytes # (Auto) 0.7 0.8 Monocytes # (Auto) 1.9 1.9 Eosinophils # (Auto) 0.1 0.1 Basophils # (Auto) 0.0 0.0 CBC Comment DIFF FINAL DIFF FINAL Differential Comment Prothrombin Time 11.6 Prothromb Time International 1.0 Ratio Activated Partial 29.8 Thromboplast Time Sodium Level 139 142 Potassium Level 6.3 4.9 Chloride Level 107 108 Carbon Dioxide Level 25.8 25.3 Anion Gap 6 9 Blood Urea Nitrogen 66 62 Creatinine 1.97 1.71 Estimat Glomerular Filtration 34 40 Rate Random Glucose 118 82 Lactic Acid Level 2.6 Calcium Level 9.4 9.2 Total Bilirubin 0.3 Aspartate Amino Transf 61 (AST/SGOT) Alanine Aminotransferase 42 (ALT/SGPT) Alkaline Phosphatase 239 Total Protein 7.7 Albumin 2.8 Lipase 82 Physical Exam HEENT: Pupils round and reactive to light; normocephalic; atraumatic; no jaundice. Throat is clear. NECK: Neck is supple, no JVD, no lymphadenopathy. CHEST: Chest is clear to auscultation and percussion. CARDIAC: Regular rate and rhythm with no murmur gallop or rubs. ABDOMEN: Soft, nondistended, nontender; no hepatosplenomegaly; bowel sounds are present in all four quadrants. EXTREMITIES: No clubbing, cyanosis, or edema. SKIN: Normal; no rash; no jaundice. CLIENT OPERATIONS MANAGER: No focal deficits; alert and oriented times three. Assessment and Plan Plan ASSESSMENT: - Nausea, decreased appetite, inability to take po x 1 week with hx of pooja, esophageal strictures, gastric ulcer. Abdomen/Pelvis CT (03/14/17)----> 1. PEG tube in place with the tip in the mid stomach with balloon in place. The stomach is decompressed and there is no oral contrast. There is no evidence of an abscess or abnormal fluid collection. 2. Metastatic disease throughout the liver. 3. Osseous metastatic disease as well. 4. Left inguinal hernia containing a loop of bowel. There is no definite obstruction. 5. Nonspecific, nonobstructive bowel gas pattern most consistent with an ileus. 6. Multiple calcified gallstones. 7. Status post anterior abdominal wall hernia repair with mesh in place. Will plan for EGD with dilatation today. ? Pooja esophagitis. PPI. Add Nystatin. - Oral Pooja. Add Nystatin. - Infected Gastrostomy tube site. Erythema around tube, large amount of purulent drainage. On levaquin. Will get C/S. - Leukocytosis. Levaquin. - Anemia. 8.7/27.9. - LINDY, Creat 1.71. PEG tube placed successfully and esophagus dilated to 14 mm. There is a large fistula site from old PEG. This should remain covered and should close in a few days. - Metastatic lung cancer. Followed by Dr. Shen for his metastatic non-small- cell lung cancer. He was originally diagnosed in June of 2015 and states he is s/p radiation and chemotherapy in the past. He is currently being treated with chemotherapy every other week, ? nivolumab. Last had this on March 03. PLAN: - Full liquid diet - Add Protonix - Add Nystatin - Cont. LevKory Amaro MD March 15, 2017 13:16
[2017-03-15] MEDS ORDERED: ALUMINUM/MAGNESIUM/SIMETH 30 ML CUP PO ONE (13:30)
[2017-03-15] MEDS: PANTOPRAZOLE SODIUM 40 MG VIAL IV PUSH SCH ×2 (13:42→22:19)
[2017-03-15] MEDS: NYSTATIN SUSP 500,000 U/5 ML CUP SWISH-SWAL SCH ×3 (13:42→22:17)
[2017-03-15] MEDS: SODIUM CHLOR 0.9% 1000 ML INJ 1,000 ML IV SCH ×2 (13:43→19:11)
[2017-03-15] MEDS: MORPHINE SULFATE 15 MG CONTROLLED RELEASE TAB PO SCH (22:18)
[2017-03-16] VITALS (8 sets, daily range): BP systolic 89–140; BP diastolic 57–96; PULSE 99–108; RESP 17–20; TEMP 97.6–99.8; O2SAT 94–99
[2017-03-16] MEDS: HEPARIN SODIUM - SQ 10,000 UNITS/ML VIAL SQ SCH ×3 (04:34→20:35)
[2017-03-16] MEDS: SODIUM CHLOR 0.9% 1000 ML INJ 1,000 ML IV SCH ×3 (04:34→21:31)
[2017-03-16] MEDS: HYDROmorphone HCL PF 1 MG/ML VIAL IV PUSH PRN ×5 (04:35→23:21)
[2017-03-16] MEDS: SODIUM CHLORIDE 0.9% FLUSH 10 ML FLUSH IV FLUSH SCH ×2 (07:23→20:35)
[2017-03-16] MEDS: NYSTATIN SUSP 500,000 U/5 ML CUP SWISH-SWAL SCH ×4 (08:41→20:34)
[2017-03-16] MEDS: PANTOPRAZOLE SODIUM 40 MG VIAL IV PUSH SCH ×2 (08:41→20:35)
[2017-03-16] MEDS: MORPHINE SULFATE 15 MG CONTROLLED RELEASE TAB PO SCH ×2 (08:42→20:34)
[2017-03-16] MEDS: ONDANSETRON HCL 4 MG/2 ML VIAL IVP PRN (08:42)
--- NOTE | 2017-03-16 08:53 | MR ---
Cc: KORY ZULETA ALFEA DATE 03/15/2017 PROCEDURE Esophagogastroduodenoscopy with esophageal dilatation with placement of a PEG tube with removal of previous PEG tube. INDICATION PEG tube malfunction. REFERRING PHYSICIAN Dr. Jaron Goldstein. HISTORY The patient has a cancer with metastasis to the liver and bones. He had radiation therapy for the primary tumor in the lung and has radiation into a stricture. He has been restricted with his diet because of the stricture. He would like to have esophageal dilatation and his PEG tube has become inflamed and is not functioning properly. PROCEDURE DETAILS After informed consent was obtained the patient was placed in the supine position. He was sedated by the anesthesia service. After adequate sedation was achieved the Pentax video gastroscope was inserted in the oropharynx and advanced down to the distal esophagus. It could not be advanced further because of the severe stricturing at that level. A guidewire was carefully passed down through the opening and down into the stomach. The scope was then withdrawn leaving the guidewire in place. Over the guidewire a 12 mm Savary dilator was passed down carefully through the distal esophagus and into the stomach. The guidewire and dilator were then removed. The scope was then reinserted and the esophagus was passed with ease and the stomach was entered. The stomach was empty. The PEG tube was identified in the stomach body. There was a bulb inflated there. In spite of multiple attempts the duodenum could not be entered, therefore, the patient was turned onto his left side and the balloon was deflated and the old PEG tube was removed. Glucagon was administered still although the pylorus could be viewed it was not possible to enter the duodenum with the scope. The patient was turned onto his back and then the PEG tube site was chosen. Transillumination was limited to the area right around the old PEG tube. A new PEG tube was desirable because of inflammation around the old one. The site was chosen and the stomach skin was sterilized with Betadine. The skin was infiltrated with Xylocaine 1%. A stab wound was made in the abdomen just through the surface epithelium and into the subcutaneous tissue. The introducer was then advanced into the stomach under direct visualization and grasped with a snare passed through the scope. The wire was passed through the introducer and grasped with a snare, pulled out through the mouth and then the PEG tube was placed in the usual way without difficulty. The PEG tube was attached as usual. Once the PEG tube was stabilized the scope was re-introduced and the internal bumper was identified and confirmed to be excellent. The scope was then advanced into the antrum and a guidewire was again left in place. The Savary 12.8 mm dilator was passed over the guidewire and into the stomach. That dilator was removed and a 14 mm Savary dilator was passed down over the wire into the stomach. The dilator and guidewire were then removed. The scope was introduced for a final time to examine the distal esophagus which was dilated but stable without apparent complications. The PEG tube site was undisturbed. The scope was then withdrawn and the procedure was terminated. He tolerated the procedure well and was returned to the recovery room in good condition. FINDINGS 1. The esophagus showed a severe distal stricturing probably from radiation treatment. This was dilated as described above with three dilators, the 12 mm, 12.8 mm and 14 mm Savary dilator without apparent complications. 2. The stomach was sharply angulated and the duodenum could not actually be entered although the pylorus was visualized and appeared normal. 3. The old PEG tube was removed and a new PEG tube was placed in the adjacent tissue. This was performed in the usual way without apparent complications. 4. The duodenum could not be directly viewed but the pylorus appeared normal. 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 IMPRESSION 1. Inflamed old PEG tube removed. 2. New PEG tube placed without apparent complications. 3. Esophagus dilated to 14 mm without apparent complications. RECOMMENDATIONS 1. The patient should tolerate a full liquid diet at this point and given the history of previous PEG tube his feedings can begin today by mouth. This PEG tube can be used for medications if desired or tube feedings tomorrow if desired. 2. The antibiotic Levaquin could be adequate to treat his localized inflammation in his skin, however, consideration for broad-spectrum antibiotic coverage should be made. Kory Zuleta MD [facility] /1:31 PM /8:49 AM DWIGHT
[2017-03-16 09:23] LABS: BICARBONATE 22.4 MEQ/L (21.0-32.0); POTASSIUM 3.8 MEQ/L (3.5-5.1)
[2017-03-16] MEDS ORDERED: DEXTROSE 50% IN WATER 50 ML VIAL(D50) IV PUSH ONE (09:45)
--- NOTE | 2017-03-16 13:16 | HHI.PR ---
Subjective Remarks patient tolerated EGD with dilatation and PEG change- TF to e started- per on Nutren 1.5 po by pleasure- swallowing good Objective Vitals Vital Signs Date Time Temp Pulse Resp B/P Pulse Ox O2 Delivery O2 Flow Rate FiO2 03/16/17 12:00 99.8 108 18 89/ 99 03/16/17 08:02 106 03/16/17 08:00 97.8 106 20 140/96 96 03/16/17 05:05 16 03/16/17 04:00 97.6 102 17 132/61 94 03/16/17 00:00 97.6 99 17 105/57 95 03/15/17 23:18 16 03/15/17 21:24 97 03/15/17 20:00 97.0 100 18 120/58 95 03/15/17 16:00 96.6 103 18 128/62 94 03/15/17 13:28 90 22 102/56 9 I/O 03/15/17 03/15/17 03/15/17 03/16/17 03/16/17 03/16/17 07:00 15:00 23:00 07:00 15:00 23:00 Intake Total 600 ml 1120 ml 2380 ml Output Total 150 ml 550 ml 400 ml 600 ml Balance 600 ml 970 ml -550 ml -400 ml 1780 ml Intake Oral 120 ml 480 ml IV Total 600 ml 1900 ml Other 1000 ml Output Urine Total 150 ml 550 ml 400 ml 600 ml Result Diagram: 03/15/17 0419 03/16/17 0823 Imaging Last Impressions Abdomen/Pelvis CT 03/14/17 0000 Signed Impressions: Service Date/Time: Tuesday, March 14, 2017 23:45 - CONCLUSION: 1. PEG tube in place with the tip in the mid stomach with balloon in place. The stomach is decompressed and there is no oral contrast. There is no evidence of an abscess or abnormal fluid collection. 2. Metastatic disease throughout the liver. 3. Osseous metastatic disease as well. 4. Left inguinal hernia containing a loop of bowel. There is no definite obstruction. 5. Nonspecific, nonobstructive bowel gas pattern most consistent with an ileus. 6. Multiple calcified gallstones. 7. Status post anterior abdominal wall hernia repair with mesh in place. Samir Foley MD Objective Remarks awake and alert, NAD oral thrush anicteric lungs no rales regular rhythm abdomen- previous PEG sites with marked erythema and yellowish drainage foul smelling, good bowel sounds, new PEG site with tube in place- extremities no edema Procedures 03/15- EGD with dilatation and PEG replacement A/P Assessment and Plan Mr. Campbell is a 71 year-old male who presented to the ER on 03/14/17 to be evaluated for a possibly dislodged PEG tube. Abdomen/pelvis CT in the ER shows PEG tube in place with tip in the mid stomach with balloon in place and nonobstructive bowel gas pattern most consistent with an ileus; labs studies show leukocytosis, acute renal failure, lactic acidosis, and hyperkalemia. He is admitted for management. Feeding tube dysfunction S/P PEG replacement 03/15 Esophageal stricture S/P EGD dilatation 03/15 Pooja esophagitis - on procedure report- there is a large fistula site from old peg - monitor clinically- per GI should close spontaneously - TF restarted PEG site infection- growing gram negative rods - started on Levaquin 750 mg IV q24 h- 03/15 - change to po Levaquin - starting fortino -wound care team consult for recommendations - NYstatin qid Lactic acidosis - resolved - Initial lactic acid level 2.6 Oral candidiasis - Nystatin qid Acute renal failure most likely secondary to dehydration - IMproved - Avoid nephrotoxins Hyperkalemia - corrected - Initial potassium 6.3 - IV insulin, D50 W, calcium gluconate, and Kayexalate Hypoglycemia- this am on routine labs- asymptomatic- - given D50 and start po and tube feedings - recheck BS good Transaminitis - AST 61 - Elevation likely secondary to liver metastasis Metastatic lung cancer - Consult physical therapy to avoid further debility - Dilaudid 0.2 mg IV push every 4 hours as needed for pain DVT prophylaxis - Heparin 5000 units subq q8h . Code Status DNR - per discussion with patient DC today- CM consult for wound care nursing d/w Jaron Goldstein MD March 16, 2017 13:16 Jaron Goldstein MD March 16, 2017 13:16 Jaron Goldstein MD March 16, 2017 13:16
[2017-03-16] MEDS ORDERED: CEPHALEXIN MONOHYDRATE 500 MG CAP PO SCH (14:00)
--- NOTE | 2017-03-16 14:11 | HHI.FF ---
Face to Face Verification Diagnosis: (1) Feeding tube dysfunction (2) Infection of PEG site Speech Therapy Order: To Improve: Swallowing Home Health Nursing Order: Medical education Signs/symptoms of disease process Wound care and dressing changes I have seen patient Santiago Olivarez on 03/16/17. My clinical findings support the need for the requested home health care services because: Need for psychosocial assistance Infection w/ risk of complications I certify that my clinical findings support that this patient is homebound because: Need for psychosocial assistance Jaron Goldstein MD March 16, 2017 14:11
--- NOTE | 2017-03-16 15:15 | HHI.GIFU ---
Subjective Remarks Pt resting comfortably in bed. Has mild nausea. Denies abd pain, vomiting. He and are asking for him to go home. He had a popsicle earlier. Per RN old peg site still with purulent drainage and some gastric contents as bright red popsicle juice appears to have come out wit purulent drainage. Objective Vitals I&O Vital Signs Date Time Temp Pulse Resp B/P Pulse Ox O2 Delivery O2 Flow Rate FiO2 03/16/17 12:00 99.8 108 18 89/ 99 03/16/17 08:02 106 03/16/17 08:00 97.8 106 20 140/96 96 03/16/17 05:05 16 03/16/17 04:00 97.6 102 17 132/61 94 03/16/17 00:00 97.6 99 17 105/57 95 03/15/17 23:18 16 03/15/17 21:24 97 03/15/17 20:00 97.0 100 18 120/58 95 03/15/17 16:00 96.6 103 18 128/62 94 I/O 03/15/17 03/15/17 03/15/17 03/16/17 03/16/17 03/16/17 07:00 15:00 23:00 07:00 15:00 23:00 Intake Total 600 ml 1120 ml 2380 ml Output Total 150 ml 550 ml 400 ml 600 ml Balance 600 ml 970 ml -550 ml -400 ml 1780 ml Intake Oral 120 ml 480 ml IV Total 600 ml 1900 ml Other 1000 ml Output Urine Total 150 ml 550 ml 400 ml 600 ml Laboratory Laboratory Tests Test 03/16/17 08:23 Sodium Level 146 Potassium Level 3.8 Chloride Level 112 Carbon Dioxide Level 22.4 Anion Gap 12 Blood Urea Nitrogen 27 Creatinine 0.88 Estimat Glomerular Filtration 86 Rate Random Glucose 45 Calcium Level 7.8 Date/Time Procedure Status Source Growth 03/15/17 11:15 Gram Stain - Final Resulted Wound Abdomen 03/15/17 11:15 Wound Culture - Preliminary Resulted Gram Negative [facility] Last Impressions Abdomen/Pelvis CT 03/14/17 0000 Signed Impressions: Service Date/Time: Tuesday, March 14, 2017 23:45 - CONCLUSION: 1. PEG tube in place with the tip in the mid stomach with balloon in place. The stomach is decompressed and there is no oral contrast. There is no evidence of an abscess or abnormal fluid collection. 2. Metastatic disease throughout the liver. 3. Osseous metastatic disease as well. 4. Left inguinal hernia containing a loop of bowel. There is no definite obstruction. 5. Nonspecific, nonobstructive bowel gas pattern most consistent with an ileus. 6. Multiple calcified gallstones. 7. Status post anterior abdominal wall hernia repair with mesh in place. Samir Foley MD Physical Exam HEENT: EOMI; normocephalic; atraumatic; no jaundice. CHEST: CTA CARDIAC: Regular rate and rhythm with no murmur gallop or rubs. ABDOMEN: Soft, nondistended, nontender; no hepatosplenomegaly; bowel sounds are present in all four quadrants. PEG dressing clean. EXTREMITIES: No clubbing, cyanosis, or edema. SKIN: Normal; no rash; no jaundice. HOTEL DIRECTOR: No focal deficits; alert and oriented times three. Assessment and Plan Plan ASSESSMENT: - Nausea, decreased appetite, inability to take po x 1 week with hx of gabriela, esophageal strictures, gastric ulcer. Abdomen/Pelvis CT (03/14/17)----> 1. PEG tube in place with the tip in the mid stomach with balloon in place. The stomach is decompressed and there is no oral contrast. There is no evidence of an abscess or abnormal fluid collection. 2. Metastatic disease throughout the liver. 3. Osseous metastatic disease as well. 4. Left inguinal hernia containing a loop of bowel. There is no definite obstruction. 5. Nonspecific, nonobstructive bowel gas pattern most consistent with an ileus. 6. Multiple calcified gallstones. 7. Status post anterior abdominal wall hernia repair with mesh in place. Will plan for EGD with dilatation today. ? Gabriela esophagitis. PPI. Add Nystatin. - Oral Gabriela. Add Nystatin. - Infected Gastrostomy tube site. Erythema around tube, large amount of purulent drainage. On Keflex. Will get C/S- gram neg rods. - Leukocytosis. Levaquin stopped, now keflex. - Anemia. 8.05/25.9. - LINDY, Creat 1.71. PEG tube placed successfully and esophagus dilated to 14 mm. There is a large fistula site from old PEG. This should remain covered and should close in a few days. - Metastatic lung cancer. Followed by Dr. Shen for his metastatic non-small- cell lung cancer. He was originally diagnosed in June of 2015 and states he is s/p radiation and chemotherapy in the past. He is currently being treated with chemotherapy every other week, ? nivolumab. Last had this on March 03. PLAN: - soft diet - Protonix - Nystatin - continue keflex This pt seen by myself and Dr Zuleta and this note is written on his behalf. Esthela Mcleod March 16, 2017 15:15
[2017-03-16] MEDS ORDERED: LEVOFLOXACIN 750 MG PREMIX INJ 150 ML IV SCH (17:00)
[2017-03-17] VITALS: BP 125/66; PULSE 99; RESP 17; TEMP 97.8; O2SAT 93
[2017-03-17] MEDS: HYDROmorphone HCL PF 1 MG/ML VIAL IV PUSH PRN ×2 (03:43→11:06)
[2017-03-17] MEDS: ONDANSETRON HCL 4 MG/2 ML VIAL IVP PRN (03:43)
[2017-03-17 04:00] VITALS: BP 148/70; PULSE 103; RESP 18; TEMP 96.9; O2SAT 95
[2017-03-17] MEDS: HEPARIN SODIUM - SQ 10,000 UNITS/ML VIAL SQ SCH ×2 (06:00→07:50)
[2017-03-17] MEDS: SODIUM CHLORIDE 0.9% FLUSH 10 ML FLUSH IV FLUSH SCH (07:48)
[2017-03-17] MEDS: MORPHINE SULFATE 15 MG CONTROLLED RELEASE TAB PO SCH (07:50)
[2017-03-17] MEDS: NYSTATIN SUSP 500,000 U/5 ML CUP SWISH-SWAL SCH ×2 (07:50→14:02)
[2017-03-17 08:00] VITALS: BP 141/72; PULSE 104; RESP 21; TEMP 96.2; O2SAT 96
[2017-03-17] MEDS ORDERED: LEVOFLOXACIN 500 MG TAB PO SCH (09:00)
[2017-03-17] MEDS ORDERED: LEVOFLOXACIN 750 MG TAB PO SCH (09:00)
[2017-03-17] MEDS ORDERED: PANTOPRAZOLE SOD 40 MG DELAYED RELEASE TAB PO SCH (09:00)
--- NOTE | 2017-03-17 09:52 | HHI.PR ---
Subjective Remarks no complains tolerating TF po intake tolerating gradually Objective Vitals Vital Signs Date Time Temp Pulse Resp B/P Pulse Ox O2 Delivery O2 Flow Rate FiO2 03/17/17 04:36 16 03/17/17 04:00 96.9 103 18 148/70 95 03/17/17 00:00 97.8 99 17 125/66 93 03/16/17 22:05 18 03/16/17 20:22 101 03/16/17 20:00 98.7 105 17 120/58 95 03/16/17 16:00 99.5 104 18 130/60 94 03/16/17 12:00 99.8 108 18 89/ 99 I/O 03/16/17 03/16/17 03/16/17 03/17/17 03/17/17 03/17/17 07:00 15:00 23:00 07:00 15:00 23:00 Intake Total 2860 ml 240 ml Output Total 400 ml 1200 ml 200 ml 450 ml Balance -400 ml 1660 ml 40 ml -450 ml Intake Oral 960 ml 240 ml IV Total 1900 ml Output Urine Total 400 ml 1200 ml 200 ml 450 ml # Bowel Movements 0 1 Result Diagram: 03/15/17 0419 03/16/17 0823 Imaging Last Impressions Abdomen/Pelvis CT 03/14/17 0000 Signed Impressions: Service Date/Time: Tuesday, March 14, 2017 23:45 - CONCLUSION: 1. PEG tube in place with the tip in the mid stomach with balloon in place. The stomach is decompressed and there is no oral contrast. There is no evidence of an abscess or abnormal fluid collection. 2. Metastatic disease throughout the liver. 3. Osseous metastatic disease as well. 4. Left inguinal hernia containing a loop of bowel. There is no definite obstruction. 5. Nonspecific, nonobstructive bowel gas pattern most consistent with an ileus. 6. Multiple calcified gallstones. 7. Status post anterior abdominal wall hernia repair with mesh in place. Samir Foley MD Objective Remarks awake and alert, NAD oral thrush- improved anicteric lungs no rales regular rhythm abdomen- PEG site- -decreased erythema, dry (seen with wound care nurse and ) extremities no edema Procedures 03/15- EGD with dilatation and PEG replacement A/P Assessment and Plan Mr. Campbell is a 71 year-old male who presented to the ER on 03/14/17 to be evaluated for a possibly dislodged PEG tube. Abdomen/pelvis CT in the ER shows PEG tube in place with tip in the mid stomach with balloon in place and nonobstructive bowel gas pattern most consistent with an ileus; labs studies show leukocytosis, acute renal failure, lactic acidosis, and hyperkalemia. Feeding tube dysfunction S/P PEG replacement 03/15 Esophageal stricture S/P EGD dilatation 03/15 Pooja esophagitis - on procedure report- there is a large fistula site from old peg - monitor clinically- per GI should close spontaneously - TF restarted-tolerating well PEG site infection- growing gram negative rods - started on Levaquin IV q24 h- 03/15 - change to po Levaquin - today -wound care team consult for recommendations- - Optifoam non adhesive Ag dressing change q 3 days- applied today 03/17 - NYstatin qid Lactic acidosis - resolved - Initial lactic acid level 2.6 Oral candidiasis - Nystatin qid S/P Acute renal failure most likely secondary to dehydration - IMproved - Avoid nephrotoxins - d/w - no NSAIDs, NO metformin, avoid dehydration Hyperkalemia - corrected - Initial potassium 6.3 - IV insulin, D50 W, calcium gluconate, and Kayexalate History of DM type 2- as OP was on glyburide, metformin and Januvia -discussed with - all DC here and monitor. Metformin was also DC came in with LINDY -good readings off meds - ff blood sugars as OP and record and d/w PCP if needs to be started on meds eventually Transaminitis - AST 61 - Elevation likely secondary to liver metastasis Metastatic lung cancer - Consult physical therapy to avoid further debility - Dilaudid 0.2 mg IV push every 4 hours as needed for pain DVT prophylaxis - Heparin 5000 units subq q8h . Code Status DNR - per discussion with patient DC today- CM consult for wound care nursing d/w Jaron Goldstein MD March 17, 2017 09:51
[2017-03-17] MEDS ORDERED: NYST1000 SWISH-SWAL (10:14)
[2017-03-17] MEDS ORDERED: LEVA500T PO (10:14)
--- NOTE | 2017-03-17 10:19 | HHI.DS ---
Discharge Summary Admission Date March 14, 2017 at 23:14 Discharge Date: March 17, 2017 Admitting Diagnosis acute kidney injury, hyperkalemia, cancer pt (1) Feeding tube dysfunction ICD Code: T85.598A Diagnosis: Principal (2) Hypertension ICD Code: I10 Diagnosis: Secondary (3) Diabetes mellitus ICD Code: E11.9 Diagnosis: Secondary Procedures 03/15- EGD with dilatation and PEG replacement Brief History - From Admission Mr. 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 Abdomen/pelvis CT in the ER shows PEG tube in place with tip in the mid stomach with balloon in place and nonobstructive bowel gas pattern most consistent with an ileus; labs studies show leukocytosis, acute renal failure, lactic acidosis, and hyperkalemia. He is admitted for medical management. Patient is seen in his hospital room. He states that he presented to the ER because he thought his feeding tube fell out yesterday. Denies fever, n/v/d black or bloody stool, hematuria, or dysuria. Reports pain at PEG tube insertion sight - states there is some redness and irritation there along with some yellow drainage. He takes some oral intake at home but also performs bolus tube feedings. The PEG tube was placed by Dr. Vieira 12/2015. Sees Dr. Shen - medical oncology. He underwent a PET scan one week ago and is awaiting results. . CBC/BMP: 03/15/17 0419 03/16/17 0823 Significant Findings Laboratory Tests Test 03/14/17 03/15/17 03/16/17 21:55 04:19 08:23 White Blood Count 12.8 TH/MM3 15.0 TH/MM3 (4.0-11.0) (4.0-11.0) Red Blood Count 3.00 MIL/MM3 3.12 MIL/MM3 (4.50-5.90) (4.50-5.90) Hemoglobin 8.5 GM/DL 8.7 GM/DL (13.0-17.0) (13.0-17.0) Hematocrit 26.7 % 27.9 % (39.0-51.0) (39.0-51.0) Mean Corpuscular Hemoglobin 31.7 % 31.2 % Concent (32.0-36.0) (32.0-36.0) Neutrophils (%) (Auto) 78.8 % 81.5 % (16.0-70.0) (16.0-70.0) Lymphocytes (%) (Auto) 5.7 % 5.0 % (9.0-44.0) (9.0-44.0) Monocytes (%) (Auto) 14.7 % 12.9 % (0.0-8.0) (0.0-8.0) Neutrophils # (Auto) 10.1 TH/MM3 12.2 TH/MM3 (1.8-7.7) (1.8-7.7) Lymphocytes # (Auto) 0.7 TH/MM3 0.8 TH/MM3 (1.0-4.8) (1.0-4.8) Monocytes # (Auto) 1.9 TH/MM3 1.9 TH/MM3 (0-0.9) (0-0.9) Potassium Level 6.3 MEQ/L (3.5-5.1) Blood Urea Nitrogen 66 MG/DL (7-18) 62 MG/DL (7-18) 27 MG/DL (7-18) Creatinine 1.97 MG/DL 1.71 MG/DL (0.60-1.30) (0.60-1.30) Estimat Glomerular Filtration 34 ML/MIN (>89) 40 ML/MIN (>89) 86 ML/MIN (>89) Rate Random Glucose 118 MG/DL 45 MG/DL (74-106) (74-106) Lactic Acid Level 2.6 mmol/L (0.4-2.0) Aspartate Amino Transf 61 U/L (15-37) (AST/SGOT) Alkaline Phosphatase 239 U/L (45-117) Albumin 2.8 GM/DL (3.4-5.0) Chloride Level 108 MEQ/L 112 MEQ/L (98-107) (98-107) Sodium Level 146 MEQ/L (136-145) Calcium Level 7.8 MG/DL (8.5-10.1) Imaging Last Impressions Abdomen/Pelvis CT 03/14/17 0000 Signed Impressions: Service Date/Time: Tuesday, March 14, 2017 23:45 - CONCLUSION: 1. PEG tube in place with the tip in the mid stomach with balloon in place. The stomach is decompressed and there is no oral contrast. There is no evidence of an abscess or abnormal fluid collection. 2. Metastatic disease throughout the liver. 3. Osseous metastatic disease as well. 4. Left inguinal hernia containing a loop of bowel. There is no definite obstruction. 5. Nonspecific, nonobstructive bowel gas pattern most consistent with an ileus. 6. Multiple calcified gallstones. 7. Status post anterior abdominal wall hernia repair with mesh in place. Samir Foley MD PE at Discharge awake and alert, NAD oral thrush- improved anicteric lungs no rales regular rhythm abdomen- PEG site- -decreased erythema, dry (seen with wound care nurse and ) extremities no edema Pt update on day of discharge no pain, tolerating po no swallowing difficulties afebrile PEG site exam- imrproved, dry Hospital Course Mr. Campbell is a 71 year-old male who presented to the ER on 03/14/17 to be evaluated for a possibly dislodged PEG tube. Abdomen/pelvis CT in the ER shows PEG tube in place with tip in the mid stomach with balloon in place and nonobstructive bowel gas pattern most consistent with an ileus; labs studies show leukocytosis, acute renal failure, lactic acidosis, and hyperkalemia. Feeding tube dysfunction S/P PEG replacement 03/15 Esophageal stricture S/P EGD dilatation 03/15 Pooja esophagitis - on procedure report- there is a large fistula site from old peg - monitor clinically- per GI should close spontaneously - TF restarted-tolerating well PEG site infection- growing gram negative rods - started on Levaquin IV q24 h- 03/15 - change to po Levaquin - today -wound care team consult for recommendations- - Optifoam non adhesive Ag dressing change q 3 days- applied today 03/17 - NYstatin qid Lactic acidosis - resolved - Initial lactic acid level 2.6 Oral candidiasis - Nystatin qid S/P Acute renal failure most likely secondary to dehydration - IMproved - Avoid nephrotoxins - d/w - no NSAIDs, NO metformin, avoid dehydration Hyperkalemia - corrected - Initial potassium 6.3 - IV insulin, D50 W, calcium gluconate, and Kayexalate History of DM type 2- as OP was on glyburide, metformin and Januvia -discussed with - all DC here and monitor. Metformin was also DC came in with LINDY -good readings off meds - ff blood sugars as OP and record and d/w PCP if needs to be started on meds eventually Transaminitis - AST 61 - Elevation likely secondary to liver metastasis Metastatic lung cancer - Consult physical therapy to avoid further debility - Dilaudid 0.2 mg IV push every 4 hours as needed for pain DVT prophylaxis - Heparin 5000 units subq q8h . Code Status DNR - per discussion with patient DC today- CM consult for wound care nursing d/w Jaron Goldstein MD March 17, 2017 09:51 Pt Condition on Discharge: Stable Discharge Disposition: Disch w/ Home Health Serv Discharge Time: <= 30 minutes Discharge Instructions DIET: Follow Instructions for: As Tolerated, No Restrictions, Diabetic Diet Speech Therapy-Diet Recommends: Soft Activities you can perform: Weight Bearing as Demetri Activities to Avoid: Strenuous Activity Follow up Referrals: Appointment for Follow Up Oncology - 1 Week with [facility] PCP Follow-up - 3-5 Days with [facility] New Medications: Levofloxacin (Levaquin) 500 Mg Tab 500 MG PO DAILY 7 Days 7 TAB Nystatin Liq (Nystatin Liq) 100,000 unit/ml Susp 5 ML SWISH-SWAL QID THRU Days 10 BOTTLE Continued Medications: Ksmynmch-Ewsuidhlt-Ugkkfvpzfyh Liq (Comfort Gel Liq) 200-200-20 Mg/5 Ml Susp Aspirin (Aspirin 81) 81 Mg Tabdr 81 MG PO DAILY TAB Levorphanol (Levorphanol) 2 Mg Tab 4 MG PO Q6HR PRN PAIN SCALE 4 TO 10 Morphine ER (Morphine ER) 15 Mg Tab 15 MG PO BID Pain Management Ref 0 TAB Ondansetron (Ondansetron) 4 Mg Tab Pantoprazole (Pantoprazole) 40 Mg Tab 40 MG PO DAILY Reflux #30 Ref 0 TAB Discontinued Medications: Diclofenac Opth Drops (Diclofenac Opth Drops) Unknown Strength Soln Unknown Dose RIGHT EYE BID Pain Management #2.5 Ref 0 ML Loperamide (Loperamide) 2 Mg Cap 2 MG PO DIRECTED One capsule after each loose stool. Not to exceed 8 capsules per day. PRN DIARRHEA Ref 0 CAP Metformin (Metformin) Unknown Strength Tab Unknown Dose PO BIDPC With meals Blood Sugar Management #60 Ref 0 TAB Sitagliptin (Januvia) 100 Mg Tab 100 MG PO HS Blood Sugar Management #30 Ref 0 TAB Jaron Goldstein MD March 17, 2017 10:19
[2017-03-17 10:43] LABS: BICARBONATE 23.7 MEQ/L (21.0-32.0); POTASSIUM 3.7 MEQ/L (3.5-5.1)
[2017-03-17] MEDS: SODIUM CHLOR 0.9% 1000 ML INJ 1,000 ML IV SCH (11:12)
[2017-03-17] MEDS ORDERED: OPTI4PAD TOPICAL (11:35)
[2017-03-17 12:00] VITALS: BP 131/61; PULSE 113; RESP 23; TEMP 98.4
== END 2017-03-17 16:05 | disposition home health service (06) | DRG 394 ==
LOC: NEPE 19:31 → NEDA 23:14 → HOCB 03-15 01:23
PROVIDERS: ADMIT Internal Medicine; ATTEND Internal Medicine
PROC: 0D758ZZ Dilation of Esophagus, Via Natural or Artificial Opening Endoscopic (ICD-10-PCS; 2017-03-15)
PROC: 0DH68UZ Insertion of Feeding Device into Stomach, Via Natural or Artificial Opening Endoscopic (ICD-10-PCS; principal; 2017-03-15 11:58)
PROC: 0DP6XUZ Removal of Feeding Device from Stomach, External Approach (ICD-10-PCS; 2017-03-15 11:58)
DX: K94.23 Gastrostomy malfunction (principal); N17.9 Acute kidney failure, unspecified; R64 Cachexia; B37.81 Candidal esophagitis; B37.0 Candidal stomatitis; C79.31 Secondary malignant neoplasm of brain; C34.90 Malignant neoplasm of unspecified part of unspecified bronchus or lung; C78.7 Secondary malignant neoplasm of liver and intrahepatic bile duct; C79.51 Secondary malignant neoplasm of bone; E87.2 Acidosis; K56.7 Ileus, unspecified; E87.5 Hyperkalemia; K94.22 Gastrostomy infection; Y83.3 Surgical operation with formation of external stoma as the cause of abnormal reaction of the patient, or of later complication, without mention of misadventure at the time of the procedure; K22.2 Esophageal obstruction; E11.649 Type 2 diabetes mellitus with hypoglycemia without coma; Z92.21 Personal history of antineoplastic chemotherapy; Z79.84 Long term (current) use of oral hypoglycemic drugs; E78.5 Hyperlipidemia, unspecified; I10 Essential (primary) hypertension; Z68.20 Body mass index [BMI] 20.0-20.9, adult; E86.0 Dehydration; R13.12 Dysphagia, oropharyngeal phase; K31.2 Hourglass stricture and stenosis of stomach; R74.0 Nonspecific elevation of levels of transaminase and lactic acid dehydrogenase [LDH]; D64.9 Anemia, unspecified; Z66 Do not resuscitate; Y84.2 Radiological procedure and radiotherapy as the cause of abnormal reaction of the patient, or of later complication, without mention of misadventure at the time of the procedure; Z87.11 Personal history of peptic ulcer disease; Z86.010 Personal history of colon polyps; K80.20 Calculus of gallbladder without cholecystitis without obstruction; Z87.891 Personal history of nicotine dependence
CPT/HCPCS: 74176; 80048; 80053; 82948; 83605; 83690; 85025; 85610; 85730; 87070; 87077; 87186; 87205; 96361; 96374; C1769; C9113; J0610; J1170; J1644; J1815; J1956; J2270; J2405; J7030

== ENCOUNTER 2017-03-22 17:54 | Inpatient (IN) | payer MEDICARE ==
[~2017-03-22] VITALS: Ht 170.2 cm; Wt 62.3 kg
[~2017-03-22 17:54] MED LIST changes: -DICL0.1S RIGHT EYE; -DILA2TAB2 PO; +LEVA500T PO; -LOPE2CAP PO; -METF1000 PO; +NYST1000 SWISH-SWAL; +OPTI4PAD TOPICAL; -SITA1TAB2 PO; +[UNRECOGNIZED DRUG - CODE] PO
[2017-03-22 18:07] VITALS: BP 132/93; PULSE 106; RESP 18; TEMP 97.5; O2SAT 97
[2017-03-22 18:10] VITALS: BP 132/93; PULSE 103; RESP 18; TEMP 97.4; O2SAT 97
--- NOTE | 2017-03-22 18:13 | PD ---
HPI Chief Complaint: hypoglycemia Time Seen by Provider: 18:10 Travel History International Travel<30 days: No Contact w/Intl Traveler<30days: No Traveled to known affect area: No History of Present Illness HPI 71-year-old male history of type 2 diabetes on Januvia, glyburide, metformin, as well as lung cancer with metastasis to the brain, bone. He presents via EMS for evaluation of hypoglycemic episode. The called EMS prior to arrival because the patient became generally lethargic with slurred speech. His blood sugar was noted to be 33. He was given D50 with prompt resolution of all of his symptoms. Upon arrival here he is awake and alert. He reports that he has been feeling generalized weakness for the past week, has had decreased oral appetite. He has been feeding through his feeding tube. He has had difficulty with activities of daily living at his house, his has been helping him but he feels that he is becoming too much for his to handle. He denies any focal weakness, slurred speech, blurred vision, nausea or vomiting, abdominal pain, fevers or chills. He does report that he was admitted here last week, had a hypoglycemic episode during his hospitalization and his diabetic medication was briefly halted. He was restarted on his glyburide, metformin and Januvia a few days ago. PFSH Past Medical History Anxiety: No Depression: No Cancer: Yes (LUNG/BONE/BRAIN) Cardiovascular Problems: Yes (BP) High Cholesterol: Yes Chemotherapy: Yes (LAST CHEMO 03/03/2017) Diabetes: Yes (TYPE 2) Endocrine: No Gastrointestinal Disorders: Yes (LESION REMOVED, NOT CANCEROUS/NAUSEA/CANT EAT) Genitourinary: No Hepatitis: No Hiatal Hernia: No Hypertension: Yes Immune Disorder: No Implanted Vascular Access Dvce: Yes Musculoskeletal: Yes Neurologic: Yes (CA METASTISIS BRAIN, LUNGS, BONE) Psychiatric: No Reproductive: No Respiratory: Yes (LOW ENERGY,SOB) Thyroid Disease: No Past Surgical History Abdominal Surgery: Yes (colectomy 2011, INCISIONAL HERNIA REPAIR 2014, APPY 1970) AICD: No Appendectomy: Yes Arteriovenous Shunt: No Cardiac Surgery: No Ear Surgery: No Endocrine Surgery: No Eye Surgery: Yes (cataract removal right eye 2012) Genitourinary Surgery: No Insulin Pump: No Joint Replacement: No Neurologic Surgery: No Pacemaker: No Thoracic Surgery: No Other Surgery: Yes Social History Alcohol Use: No Tobacco Use: No (QUIT 1991) Substance Use: No Allergies-Medications (Allergen,Severity, Reaction): Coded Allergies: Sulfa (Verified Allergy, Severe, LIP SWELLING, 03/22/17) Ibuprofen (Verified Allergy, Unknown, "DOESN'T REMEMBER", 03/22/17) pt states made his potassium level extremely raise Reported Meds & Prescriptions Reported Meds & Active Scripts Active Optifoam 4"X4" (Gauze Pads & Dressings) 1 Pad Pad 1 Pad TOPICAL Q3D Nystatin Liq 100,000 unit/ml Susp 5 Ml SWISH-SWAL QID 10 Days Reported [levaquin] 500 Mg PO DAILY Loperamide (Loperamide HCl) 2 Mg Cap 2 Mg PO DIRECTED PRN One capsule after each loose stool. Not to exceed 8 capsules per day. Protonix (Pantoprazole Sodium) 40 Mg Tab 40 Mg PO DAILY Diclofenac Opth Drops 0.1% Soln 1 Drop RIGHT EYE QID Januvia (Sitagliptin Phosphate) 100 Mg Tab 100 Mg PO DAILY Metformin (Metformin HCl) 1,000 Mg Tab 1,000 Mg PO BIDPC With meals Levorphanol (Levorphanol Tartrate) 2 Mg Tab 4 Mg PO Q6HR PRN Ondansetron (Ondansetron HCl) 4 Mg Tab Morphine ER (Morphine Sulfate) 15 Mg Tab 15 Mg PO BID Aspirin 81 (Aspirin) 81 Mg Tabdr 81 Mg PO DAILY Glyburide Unknown Strength Tab Unknown Dose PO DAILY Take with meals at the same time each day Review of Systems Except as stated in HPI: all other systems reviewed are Neg Physical Exam Narrative GENERAL: Well-developed well-nourished male in no acute distress answering questions appropriately. SKIN: Warm and dry. HEAD: Atraumatic. Normocephalic. EYES: Pupils equal and round. No scleral icterus. No injection or drainage. ENT: No nasal bleeding or discharge. Mucous membranes pink and moist. NECK: Trachea midline. No JVD. CARDIOVASCULAR: Regular rate and rhythm. No murmur appreciated. RESPIRATORY: No accessory muscle use. Clear to auscultation. Breath sounds equal bilaterally. GASTROINTESTINAL: Abdomen soft, non-tender, nondistended. Hepatic and splenic margins not palpable. Feeding tube noted. Old PEG tube site noted just superior to the current feeding tube with some drainage onto bandages, appears to be well-healing mild redness around the fistula site. MUSCULOSKELETAL: No obvious deformities. 2+ pitting edema bilaterally without tenderness to palpation lower extremities. NEUROLOGICAL: Awake and alert. No obvious cranial nerve deficits. Motor grossly within normal limits. Normal speech. PSYCHIATRIC: Appropriate mood and affect; insight and judgment normal. Data Data Last Documented VS Vital Signs Date Time Temp Pulse Resp B/P Pulse Ox O2 Delivery O2 Flow Rate FiO2 03/22/17 19:03 99 18 129/64 97 Room Air 03/22/17 18:10 97.4 Orders Electrocardiogram (03/22/17 18:09) Complete Blood Count With Diff (03/22/17 18:09) Comprehensive Metabolic Panel (03/22/17 18:09) Blood Glucose (03/22/17 18:09) Ecg Monitoring (03/22/17 18:09) Iv Access Insert/Monitor (03/22/17 18:09) Oximetry (03/22/17 18:09) Urinalysis - C+S If Indicated (03/22/17 18:48) Chest, Single Ap (03/22/17 ) Hydromorphone Pf Inj (Dilaudid Pf Inj) (03/22/17 19:15) Calcium Gluconate Inj (Calcium Gluconate (03/22/17 19:30) Magnesium (Mg) (03/22/17 19:25) Blood Glucose (03/22/17 19:27) Dext 5%-Nacl 0.45% 1000 Ml Inj (D5w-1/2 (03/22/17 19:45) Dextrose 50% In Jojo (Syr) Inj (D50w (Syr (03/22/17 20:45) Admit Order (Ed Use Only) (03/22/17 21:00) Place In Observation (03/22/17 ) Vital Signs (Adult) Q4H (03/22/17 21:01) Activity Oob With Assistance (03/22/17 21:01) Pathology Teacher / Telemetry .CONTINUOUS (03/22/17 21:01) Sodium Chloride 0.9% Flush (Ns Flush) (03/22/17 21:15) Sodium Chloride 0.9% Flush (Ns Flush) (03/23/17 09:00) Basic Metabolic Panel (Bmp) (03/23/17 06:00) Complete Blood Count With Diff (03/23/17 06:00) Case Management Consult (03/22/17 21:01) Naloxone Inj (Narcan Inj) (03/22/17 21:15) Labs Laboratory Tests Test 03/22/17 03/22/17 18:24 19:27 White Blood Count 16.9 TH/MM3 Red Blood Count 3.38 MIL/MM3 Hemoglobin 9.5 GM/DL Hematocrit 29.8 % Mean Corpuscular Volume 88.2 FL Mean Corpuscular Hemoglobin 28.1 PG Mean Corpuscular Hemoglobin 31.9 % Concent Red Cell Distribution Width 16.0 % Platelet Count 376 TH/MM3 Mean Platelet Volume 8.3 FL Neutrophils (%) (Auto) 89.9 % Lymphocytes (%) (Auto) 1.5 % Monocytes (%) (Auto) 8.0 % Eosinophils (%) (Auto) 0.1 % Basophils (%) (Auto) 0.5 % Neutrophils # (Auto) 15.2 TH/MM3 Lymphocytes # (Auto) 0.3 TH/MM3 Monocytes # (Auto) 1.3 TH/MM3 Eosinophils # (Auto) 0.0 TH/MM3 Basophils # (Auto) 0.1 TH/MM3 CBC Comment DIFF FINAL Differential Comment Sodium Level 139 MEQ/L Potassium Level 4.9 MEQ/L Chloride Level 107 MEQ/L Carbon Dioxide Level 23.3 MEQ/L Anion Gap 9 MEQ/L Blood Urea Nitrogen 34 MG/DL Creatinine 1.41 MG/DL Estimat Glomerular Filtration 50 ML/MIN Rate Random Glucose 87 MG/DL Calcium Level 7.1 MG/DL Protein Corrected Calcium 7.3 MG/DL Magnesium Level 1.7 MG/DL Total Bilirubin 0.5 MG/DL Aspartate Amino Transf 41 U/L (AST/SGOT) Alanine Aminotransferase 22 U/L (ALT/SGPT) Alkaline Phosphatase 200 U/L Total Protein 6.8 GM/DL Albumin 2.3 GM/DL Urine Color YELLOW Urine Turbidity CLEAR Urine pH 5.5 Urine Specific [place] 1.012 Urine Protein TRACE mg/dL Urine Glucose (UA) NEG mg/dL Urine Ketones TRACE mg/dL Urine Occult Blood NEG Urine Nitrite NEG Urine Bilirubin NEG Urine Urobilinogen LESS THAN 2.0 MG/DL Urine Leukocyte Esterase TRACE Urine RBC LESS THAN 1 /hpf Urine WBC 6 /hpf Urine Squamous Epithelial <1 /hpf Cells Urine Bacteria RARE /hpf Urine Hyaline Casts 1 /lpf Microscopic Urinalysis Comment CULT NOT INDICATED MDM Medical Decision Making Medical Screen Exam Complete: Yes Emergency Medical Condition: Yes Medical Record Reviewed: Yes Differential Diagnosis Hypoglycemic episode, adverse affect to medication, dehydration, electrolyte abnormality, failure to thrive Narrative Course 71-year-old male with metastatic lung cancer, type 2 diabetes presents after a hypoglycemic episode. He is back to baseline but he feels generally weak over the past week has had difficulty with activities of daily living, decreased appetite. Discussed with the patient's who agrees. The patient's lab work is been reviewed. He has leukocytosis, he has had leukocytosis in the past week, somewhat elevated today at 16.9. He is currently being treated for wound infection from old PEG tube site which was erythematous or previous notes. On examination now is mildly reddened some drainage but significantly improved according to the . He is denying any pain at the site of the old PEG tube, denying any abdominal pain. Chest x-ray and urinalysis has been added on. Previous wound culture grew out Klebsiella pneumoniae, Staphylococcus aureus, enterococcus faecium, stenotrophomonas maltophilia, he has been taking Levaquin as prescribed and his believes he has 2 or 3 days left. He took it this morning. Laboratory.. Hypocalcemic, 1 g calcium gluconate ordered, magnesium has been added on. He was able to tolerate orange juice orally however he has to take small sips at a time. Repeat blood glucose approximately one hour after CMP reveals glucoses dropped to 61. Therefore D5half normal saline at 125 mL per hour has been ordered. Repeat blood glucose improved to 75. D50 has been administered. The patient is being admitted. Diagnosis Primary Impression: Hypoglycemia Additional Impressions: Generalized weakness Hypocalcemia Admitting Information Admitting Physician Requests: Bertram Durham March 22, 2017 18:13
[2017-03-22 18:38] LABS: AUTOMATED NEUTROPHIL # 15.2 TH/MM3 (1.8-7.7); BASOPHIL # 0.1 TH/MM3 (0-0.2); BASOPHIL % 0.5 % (0.0-2.0); EOSINOPHIL % 0.1 % (0.0-4.0); HEMATOCRIT 29.8 % (39.0-51.0); HEMO FLAGS DIFF FINAL; LYMPH % 1.5 % (9.0-44.0); LYMPHOCYTE # 0.3 TH/MM3 (1.0-4.8); MEAN CELL VOLUME 88.2 FL (80.0-100.0); MEAN CORPUSCULAR HEMOGLOBIN 28.1 PG (27.0-34.0); MEAN CORPUSCULAR HGB CONC 31.9 % (32.0-36.0); NEUT % 89.9 % (16.0-70.0); PLATELET COUNT 376 TH/MM3 (150-450); RED BLOOD COUNT 3.38 MIL/MM3 (4.50-5.90); WHITE BLOOD COUNT 16.9 TH/MM3 (4.0-11.0)
[2017-03-22 19:03] VITALS: BP 129/64; PULSE 99; RESP 18; O2SAT 97
[2017-03-22] MEDS ORDERED: METF1000 PO (19:06)
[2017-03-22] MEDS ORDERED: SITA1TAB2 PO (19:06)
[2017-03-22] MEDS ORDERED: DICL0.1S RIGHT EYE (19:07)
[2017-03-22] MEDS ORDERED: PROT40TA PO (19:07)
[2017-03-22] MEDS ORDERED: LOPE2CAP PO (19:08)
[2017-03-22] MEDS ORDERED: levaquin PO (19:10)
[2017-03-22] MEDS ORDERED: HYDROmorphone HCL PF 1 MG/ML VIAL IV PUSH ONE (19:15)
--- NOTE | 2017-03-22 19:20 | RADRPT ---
EXAM DATE/TIME: 03/22/2017 19:09 [facility] COMPARISON: CHEST SINGLE AP, January 24, 2016, 13:27. INDICATIONS : Cough. MEDICAL HISTORY : Hypertension. Carcinoma, lung. Diabetic. SURGICAL HISTORY : Port placement. ENCOUNTER: Initial ACUITY: 1 day PAIN SCORE: 0/10 LOCATION: Bilateral chest FINDINGS: Left-sided portacatheter is noted and the tip overlies the junction of left brachiocephalic vein and SVC. Nonacute left sided rib fractures are noted. Blunting of bilateral costophrenic angles are ident ified. Small effusions can have this appearance. Cardiomegaly. CONCLUSION: Blunting of the bilateral costophrenic angles suggest small effusions. Bryson Nolan MD on March 22, 2017 at 19:18 Board Certified Radiologist. This report was verified electronically.
[2017-03-22 19:22] LABS: BICARBONATE 23.3 MEQ/L (21.0-32.0); POTASSIUM 4.9 MEQ/L (3.5-5.1); TOTAL BILIRUBIN ADULT 0.5 MG/DL (0.2-1.0)
[2017-03-22 19:24] LABS: CALCIUM-PROTEIN CORRECTED 7.3 MG/DL (8.5-10.1)
[2017-03-22] MEDS ORDERED: CALCIUM GLUCONATE INJ 1 GM in SODIUM CHLORIDE 0.9% INJ 90 ML IV ONE (19:30)
[2017-03-22 19:43] LABS: BACTERIA, URINE RARE /hpf; BLOOD, URINE NEG (NEG); COMMENT (UR) CULT NOT INDICATED; CULTURE IF INDICATED CULT NOT INDICATED; GLUCOSE,URINE NEG (NEG); HYALINE CAST, URINE 1 /lpf (RARE); KETONE, URINE TRACE mg/dL (NEG); NITRITE,URINE NEG (NEG); PH, URINE 5.5 (5.0-8.5); SQUAMOUS EPITHELIAL CELL URINE <1 /hpf (0-5); URINE COLOR YELLOW (YELLW/STRAW)
[2017-03-22] MEDS: DEXT 5%-NACL 0.45% 1000 ML INJ 1,000 ML IV SCH (20:01)
[2017-03-22] MEDS ORDERED: DEXTROSE 50% IN WATER 50 ML SYRINGE IV ONE (20:45)
[2017-03-22] MEDS ORDERED: NALOXONE HCL 0.4 MG/ML AMP IV PRN (21:15)
[2017-03-22] MEDS ORDERED: DEXTROSE 50% IN WATER 50 ML VIAL(D50) IV PUSH PRN (21:15)
[2017-03-22] MEDS ORDERED: SODIUM CHLORIDE 0.9% FLUSH 10 ML FLUSH IV FLUSH PRN (21:15)
[2017-03-22] MEDS ORDERED: GLUCAGON 1 MG/ML VIAL OTHER PRN (21:15)
[2017-03-22] MEDS ORDERED: DEXTROSE 50% IN WATER 50 ML VIAL(D50) IV PRN (21:15)
[2017-03-22 22:09] VITALS: BP 110/60; PULSE 95; RESP 18; O2SAT 97
[2017-03-22 22:37] VITALS: BP 110/60; PULSE 95; RESP 20; TEMP 97.6; O2SAT 97
--- NOTE | 2017-03-22 23:09 | HHI.HP ---
HPI Service [facility] Primary Care Physician Jane Treviño MD Admission Diagnosis Generalized weakness, recurrent hypoglycemia, hypocalcemia Diagnoses: Chief Complaint: hycoglycemia Travel History International Travel<30 Days: No Contact w/Intl Traveler <30 Da: No Traveled to Known Affected Are: No History of Present Illness Written by Penny Crane, acting as scribe for Dr. Ruvalcaba on 03/22/17 at 23: 43. This is a 71 year-old male with a history of Esophagitis with strictures requiring dilatation every 2-3 months, Lung cancer with bone metastases - last chemotherapy 03/03/2017, Type 2 diabetes mellitus currently on Januvia, glyburide , metformin home, Hyperlipidemia and Hypertension who presented to the ER after having hypoglycemia episode at home. Patient reports he began to feel weak, dizzy and had difficulty speaking. Patient's called EMS upon there arrival his blood sugar was noted to be 33. He was given D50 with prompt resolution of all of his symptoms. Upon arrival to the ER patient was awake and alert. While patient was in ER his blood glucose drop again to 61 and he was placed on D5NS at 125mg/h. Patient is awake and alert at this time. He reports that he has been having decreased appetite x 1 week and has had decreased oral intake. He has continued tube feeding through his feeding tube 4 8oz cans per day. Patient had new feeding tube placed recently. Patient denies any chest pain, SOB, focal weakness, slurred speech, blurred vision, nausea, vomiting, abdominal pain, fevers or chills. Review of Systems Except as stated in HPI: all other systems reviewed are Neg Past Family Social History Past Medical History Esophagitis with strictures requiring dilatation every 2-3 months Lung cancer with bone metastases - last chemotherapy 03/03/2017 Type 2 diabetes mellitus Hyperlipidemia Hypertension Past Surgical History Implanted vascular access device/[id number] Esophageal dilatation, multiple Colectomy 2011 - Dr. Gurrola Incisional hernia repair 2015 Appendectomy 1970 Right cataract surgery 2013 Reported Medications Nystatin Liq 100,000 unit/ml Susp 5 Ml SWISH-SWAL QID 10 Days [levaquin] 500 Mg PO DAILY Loperamide (Loperamide HCl) 2 Mg Cap 2 Mg PO DIRECTED PRN One capsule after each loose stool. Not to exceed 8 capsules per day. Protonix (Pantoprazole Sodium) 40 Mg Tab 40 Mg PO DAILY Diclofenac Opth Drops 0.1% Soln 1 Drop RIGHT EYE QID Januvia (Sitagliptin Phosphate) 100 Mg Tab 100 Mg PO DAILY Metformin (Metformin HCl) 1,000 Mg Tab 1,000 Mg PO BIDPC With meals Levorphanol (Levorphanol Tartrate) 2 Mg Tab 4 Mg PO Q6HR PRN Ondansetron (Ondansetron HCl) 4 Mg Tab Morphine ER (Morphine Sulfate) 15 Mg Tab 15 Mg PO BID Aspirin 81 (Aspirin) 81 Mg Tabdr 81 Mg PO DAILY Glyburide Unknown Strength Tab Unknown Dose PO DAILY Take with meals at the same time each day Allergies: Coded Allergies: Sulfa (Verified Allergy, Severe, LIP SWELLING, 03/22/17) Ibuprofen (Verified Allergy, Unknown, "DOESN'T REMEMBER", 03/22/17) pt states made his potassium level extremely raise Active Ordered Medications Current Medications Medications (Trade) Dose Ordered Sig/Vee Route Start Time Stop Time Status Last Admin (D5W-10/31 NS 1000 ml Inj) 1,000 ml @ 84 mls/hr [id number] IV 03/22/17 19:45 03/22/17 20:01 (NS Flush) 2 ml UNSCH PRN IV FLUSH 03/22/17 21:15 (NS Flush) 2 ml BID IV FLUSH 03/23/17 09:00 (Narcan Inj) 0.4 mg UNSCH PRN IV 03/22/17 21:15 (D50w (Vial) Inj) 50 ml UNSCH PRN IV 03/22/17 21:15 (Glucagon Inj) 1 mg UNSCH PRN OTHER 03/22/17 21:15 (D50w (Vial) Inj) 50 ml Q1H PRN IV PUSH 03/22/17 21:15 (Dilaudid Pf Inj) 0.2 mg Q4H PRN IV PUSH 03/22/17 23:45 (Ecotrin Ec) 81 mg DAILY PO 03/23/17 09:00 (Oramorph Sr) 15 mg BID PO 03/23/17 09:00 (Protonix) 40 mg DAILY PO 03/23/17 09:00 Patient Own Medication PT OWN MED: LEVORPHA... Q6HR PRN PO 03/22/17 23:45 Family History Mother with lymphoma Father with stomach CA/ Sister with ovarian cancer Brother with brain cancer Social History Tobacco: Quit smoking in 1991 Alcohol: social drinking with none since 2015 Physical Exam Vital Signs Vital Signs Date Time Temp Pulse Resp B/P Pulse Ox O2 Delivery O2 Flow Rate FiO2 03/22/17 22:09 95 18 110/60 97 Room Air 03/22/17 19:03 99 18 129/64 97 Room Air 03/22/17 18:10 104 18 97 Room Air 03/22/17 18:10 97.4 103 18 132/93 97 Room Air 03/22/17 18:10 97 Room Air 03/22/17 18:07 97.5 106 18 132/93 97 Physical Exam GENERAL: This is a well-nourished, well-developed patient, in no apparent distress. SKIN: No rashes, ecchymoses or lesions. Cool and dry. mild erythema at out PEG tube historic sites supervisor: Atraumatic. Normocephalic. No temporal or scalp tenderness. EYES: Extraocular motions intact. No scleral icterus. No injection or drainage. CARDIOVASCULAR: Regular rate and rhythm without murmurs, gallops, or rubs. RESPIRATORY: Clear to auscultation. Breath sounds equal bilaterally. No wheezes , rales, or rhonchi. GASTROINTESTINAL: Abdomen soft, non-tender, nondistended. No hepato-splenomegaly , or palpable masses. No guarding. PEG tube present with drainage present at out PEG site MUSCULOSKELETAL: Extremities without clubbing, cyanosis, or edema. No joint tenderness, effusion, or edema noted. No calf tenderness. Negative Homans sign bilaterally. NEUROLOGICAL: Awake and alert. No focal deficits. Motor and sensory grossly within normal limits. 4 out of 5 muscle strength in all muscle groups. Normal speech. Laboratory Laboratory Tests Test 03/22/17 03/22/17 18:24 19:27 White Blood Count 16.9 Red Blood Count 3.38 Hemoglobin 9.5 Hematocrit 29.8 Mean Corpuscular Volume 88.2 Mean Corpuscular Hemoglobin 28.1 Mean Corpuscular Hemoglobin 31.9 Concent Red Cell Distribution Width 16.0 Platelet Count 376 Mean Platelet Volume 8.3 Neutrophils (%) (Auto) 89.9 Lymphocytes (%) (Auto) 1.5 Monocytes (%) (Auto) 8.0 Eosinophils (%) (Auto) 0.1 Basophils (%) (Auto) 0.5 Neutrophils # (Auto) 15.2 Lymphocytes # (Auto) 0.3 Monocytes # (Auto) 1.3 Eosinophils # (Auto) 0.0 Basophils # (Auto) 0.1 CBC Comment DIFF FINAL Differential Comment Sodium Level 139 Potassium Level 4.9 Chloride Level 107 Carbon Dioxide Level 23.3 Anion Gap 9 Blood Urea Nitrogen 34 Creatinine 1.41 Estimat Glomerular Filtration 50 Rate Random Glucose 87 Calcium Level 7.1 Protein Corrected Calcium 7.3 Magnesium Level 1.7 Total Bilirubin 0.5 Aspartate Amino Transf 41 (AST/SGOT) Alanine Aminotransferase 22 (ALT/SGPT) Alkaline Phosphatase 200 Total Protein 6.8 Albumin 2.3 Urine Color YELLOW Urine Turbidity CLEAR Urine pH 5.5 Urine Specific Brillion 1.012 Urine Protein TRACE Urine Glucose (UA) NEG Urine Ketones TRACE Urine Occult Blood NEG Urine Nitrite NEG Urine Bilirubin NEG Urine Urobilinogen LESS THAN 2.0 Urine Leukocyte Esterase TRACE Urine RBC LESS THAN 1 Urine WBC 6 Urine Squamous Epithelial <1 Cells Urine Bacteria RARE Urine Hyaline Casts 1 Microscopic Urinalysis Comment CULT NOT INDICATED Result Diagram: 03/22/17 1824 03/22/17 1824 Imaging Last Impressions Chest X-Ray 03/22/17 0000 Signed Impressions: Service Date/Time: Wednesday, March 22, 2017 19:09 - CONCLUSION: Blunting of the bilateral costophrenic angles suggest small effusions. Bryson Nolan MD Assessment and Plan Problem List: (1) Hypoglycemia ICD Code: E16.2 Status: Acute (2) Hypocalcemia ICD Code: E83.51 Status: Acute Assessment and Plan Mr. Campbell is a 71 year-old male who presented to the ER for hypoglycemia Hypoglycemia history of type 2 diabetes on Januvia, glyburide, metformin Hold Januvia, glyburide, metformin Continue D5 monitor accuchecks LINDY possibly related to PO intake and dehydration hydrate with IV fluids encourage PO intake recheck in AM Hypocalcemic- 1 g calcium gluconate ordered in ER continue to monitor DVT prophylaxis with Lovenox Discussed with ER provider, nursing and patient This note was transcribed by scribe [Penny Crane]. I, Dr. Neha Ruvalcaba personally performed the history, physical exam, and medical decision making; and confirmed the accuracy of the information in the transcribed note. Authenticated by Dr. Neha Ruvalcaba on 03/22/17 at 23:43. Physician Certification 2 Midnight Certification Type: Admission for Inpatient Services Order for Inpatient Services The services are ordered in accordance with Medicare regulations or non- Medicare payer requirements, as applicable. In the case of services not specified as inpatient-only, they are appropriately provided as inpatient services in accordance with the 2-midnight benchmark. Estimated LOS (days): 3 days is the estimated time the patient will need to remain in the hospital, assuming treatment plan goals are met and no additional complications. Post-Hospital Plan: Home Penny Crane March 22, 2017 23:09 Neha Ruvalcaba MD Apr 10, 2017 12:57
[2017-03-22] MEDS ORDERED: CALCIUM GLUCONATE 10% 1 GM/10 ML VIAL IV PUSH ONE (23:45)
[2017-03-22] MEDS ORDERED: PATIENT OWN NARCOTIC MED 1 PO PRN (23:45)
[2017-03-23] MEDS: HYDROmorphone HCL PF 1 MG/ML VIAL IV PUSH PRN ×6 (01:02→22:49)
[2017-03-23 04:00] VITALS: BP 117/53; PULSE 98; RESP 18; TEMP 97.4; O2SAT 97
[2017-03-23] MEDS: DEXT 5%-NACL 0.45% 1000 ML INJ 1,000 ML IV SCH (04:28)
[2017-03-23 07:42] LABS: AUTOMATED NEUTROPHIL # 10.6 TH/MM3 (1.8-7.7); BASOPHIL % 0.2 % (0.0-2.0); EOSINOPHIL # 0.1 TH/MM3 (0-0.4); EOSINOPHIL % 0.4 % (0.0-4.0); HEMATOCRIT 25.2 % (39.0-51.0); HEMO FLAGS DIFF FINAL; LYMPH % 3.1 % (9.0-44.0); LYMPHOCYTE # 0.4 TH/MM3 (1.0-4.8); MEAN CELL VOLUME 87.7 FL (80.0-100.0); MEAN CORPUSCULAR HEMOGLOBIN 28.2 PG (27.0-34.0); MEAN CORPUSCULAR HGB CONC 32.2 % (32.0-36.0); MONO % 9.5 % (0.0-8.0); NEUT % 86.8 % (16.0-70.0); PLATELET COUNT 327 TH/MM3 (150-450); RED BLOOD COUNT 2.87 MIL/MM3 (4.50-5.90); RED CELL DISTRIBUTION WIDTH 16.1 % (11.6-17.2); WHITE BLOOD COUNT 12.2 TH/MM3 (4.0-11.0)
[2017-03-23 08:00] VITALS: BP 108/56; PULSE 99; RESP 18; TEMP 98; O2SAT 95
[2017-03-23] MEDS: PANTOPRAZOLE SOD 40 MG DELAYED RELEASE TAB PO SCH (08:07)
[2017-03-23] MEDS: ASPIRIN EC 81 MG TABEC PO SCH (08:07)
[2017-03-23] MEDS: MORPHINE SULFATE 15 MG CONTROLLED RELEASE TAB PO SCH ×2 (08:07→20:39)
[2017-03-23] MEDS: SODIUM CHLORIDE 0.9% FLUSH 10 ML FLUSH IV FLUSH SCH ×2 (08:08→20:39)
[2017-03-23 08:16] LABS: BICARBONATE 23.6 MEQ/L (21.0-32.0); POTASSIUM 3.9 MEQ/L (3.5-5.1)
[2017-03-23 08:31] LABS: CALCIUM-PROTEIN CORRECTED 7.8 MG/DL (8.5-10.1)
--- NOTE | 2017-03-23 09:35 | HHI.PR ---
Subjective Remarks Follow-up hypoglycemia 03/23/17-patient seen and examined, blood glucose improved to 71 and Accu-Chek 151. He is alert and oriented 3 Objective Vitals Vital Signs Date Time Temp Pulse Resp B/P Pulse Ox O2 Delivery O2 Flow Rate FiO2 03/23/17 08:00 98.0 99 18 108/56 95 03/23/17 06:00 18 03/23/17 04:00 97.4 98 18 117/53 97 03/22/17 22:37 97.6 95 20 110/60 97 03/22/17 22:09 95 18 110/60 97 Room Air 03/22/17 19:03 99 18 129/64 97 Room Air 03/22/17 18:10 104 18 97 Room Air 03/22/17 18:10 97.4 103 18 132/93 97 Room Air 03/22/17 18:10 97 Room Air 03/22/17 18:07 97.5 106 18 132/93 97 I/O 03/22/17 03/22/17 03/22/17 03/23/17 03/23/17 03/23/17 07:00 15:00 23:00 07:00 15:00 23:00 Intake Total 1266 ml Balance 1266 ml Intake Oral 0 ml IV Total 1266 ml # Voids 0 # Bowel Movements 0 Result Diagram: 03/23/17 0712 03/23/17 0712 Imaging Last Impressions Chest X-Ray 03/22/17 0000 Signed Impressions: Service Date/Time: Wednesday, March 22, 2017 19:09 - CONCLUSION: Blunting of the bilateral costophrenic angles suggest small effusions. Bryson Nolan MD Objective Remarks GENERAL: NAD SKIN: Warm and dry. HEAD: Normocephalic. EYES: No scleral icterus. No injection or drainage. NECK: Supple, trachea midline. No JVD or lymphadenopathy. CARDIOVASCULAR: Regular rate and rhythm without murmurs, gallops, or rubs. RESPIRATORY: Breath sounds equal bilaterally. No accessory muscle use. GASTROINTESTINAL: Abdomen soft, non-tender, nondistended. MUSCULOSKELETAL: No cyanosis, or edema. BACK: Nontender without obvious deformity. No CVA tenderness. A/P Problem List: (1) Hypoglycemia ICD Code: E16.2 Status: Acute (2) Hypocalcemia ICD Code: E83.51 Status: Acute Assessment and Plan Mr. Campbell is a 71 year-old male who presented to the ER for hypoglycemia Hypoglycemia history of type 2 diabetes on Januvia, glyburide, metformin Hold Januvia, glyburide, metformin Resolved and discontinue D5W Discussed with patient regarding when and how to resume his oral hypoglycemic agents Will resume metformin tonight 03/23/17 as creatinine improved to 1.03 I Further discussed with patient that only one agent would be resuming initially then consider adding a second agent if blood glucose labile and poorly controlled. Patient also advised to keep a log of blood glucose readings LINDY possibly related to PO intake and dehydration Resolved with IV fluid hydration Hypocalcemia -Calcium corrected protein improving History of Metastatic lung cancer - Consult physical therapy to avoid further debility - Continue current pain management John Awad MD March 23, 2017 09:35
--- NOTE | 2017-03-23 10:19 | HHI.FF ---
Face to Face Verification Diagnosis: (1) Hypoglycemia (2) Generalized weakness (3) Diabetes mellitus (4) Non-small cell carcinoma of lung Physical Therapy Order: Evaluate and Treat Home Health Nursing Order: Signs/symptoms of disease process Medication education-adverse effect I have seen patient Santiago Olivarez on 03/23/17. My clinical findings support the need for the requested home health care services because: Deconditioned w/ increased weakness I certify that my clinical findings support that this patient is homebound because: Poor cardiac reserve John Awad MD March 23, 2017 10:19
[2017-03-23 12:00] VITALS: BP 115/56; PULSE 96; RESP 18; TEMP 98.1; O2SAT 93
[2017-03-23 16:00] VITALS: BP 134/62; PULSE 99; RESP 18; TEMP 98.6; O2SAT 95
--- NOTE | 2017-03-23 17:20 | EKG ---
Date Performed: 03/22/2017 Time Performed: 19:10:23 PTAGE: 71 years EKG: SINUS TACHYCARDIA WITH FREQUENT SUPRAVENTRICULAR PREMATURE COMPLEXES LOW QRS VOLTAGE IN EXT REMITY LEADS ABNORMAL RHYTHM ECG PREVIOUS TRACING : 01/24/2016 13.50 Compared to prior tracing no significant change DOCTOR: Emmett Reddy Interpretating Date/Time 03/23/2017 17:19:38
[2017-03-23 20:10] VITALS: BP 148/64; PULSE 108; RESP 16; TEMP 98.4; O2SAT 93
[2017-03-23 21:03] LABS: HEMOGLOBIN A1a 2.6 %; HEMOGLOBIN A1b 2.6 %; HEMOGLOBIN Ao 80.6 %; HEMOGLOBIN LA1C 2.3 %; HEMOGLOBIN P3 6.4 %
[2017-03-23 23:32] VITALS: BP 129/67; PULSE 101; RESP 16; TEMP 98.1; O2SAT 94
[2017-03-24] MEDS: HYDROmorphone HCL PF 1 MG/ML VIAL IV PUSH PRN ×2 (03:03→06:21)
[2017-03-24 04:13] VITALS: BP 129/63; PULSE 103; RESP 16; TEMP 98.3; O2SAT 93
[2017-03-24 06:58] LABS: AUTOMATED NEUTROPHIL # 10.6 TH/MM3 (1.8-7.7); BASOPHIL % 0.2 % (0.0-2.0); EOSINOPHIL % 0.3 % (0.0-4.0); HEMATOCRIT 27.2 % (39.0-51.0); HEMO FLAGS DIFF FINAL; LYMPH % 3.8 % (9.0-44.0); LYMPHOCYTE # 0.5 TH/MM3 (1.0-4.8); MEAN CELL VOLUME 86.8 FL (80.0-100.0); MEAN CORPUSCULAR HGB CONC 33.4 % (32.0-36.0); MONO % 11.3 % (0.0-8.0); NEUT % 84.4 % (16.0-70.0); PLATELET COUNT 372 TH/MM3 (150-450); RED BLOOD COUNT 3.14 MIL/MM3 (4.50-5.90); RED CELL DISTRIBUTION WIDTH 16.4 % (11.6-17.2); WHITE BLOOD COUNT 12.5 TH/MM3 (4.0-11.0)
[2017-03-24 07:22] LABS: BICARBONATE 26.1 MEQ/L (21.0-32.0); POTASSIUM 4.2 MEQ/L (3.5-5.1)
[2017-03-24 08:00] VITALS: BP 137/65; PULSE 94; RESP 18; TEMP 98.7; O2SAT 94
--- NOTE | 2017-03-24 08:27 | HHI.PR ---
Subjective Remarks Follow-up hypoglycemia 03/23/17-patient seen and examined, blood glucose improved to 71 and Accu-Chek 151. He is alert and oriented 3 03/24/17-patient seen and examined, states he feels bloated. BG of 204. No acute event overnight Objective Vitals Vital Signs Date Time Temp Pulse Resp B/P Pulse Ox O2 Delivery O2 Flow Rate FiO2 03/24/17 08:00 98.7 94 18 137/65 94 03/24/17 04:13 98.3 103 16 129/63 93 03/24/17 04:00 Room Air 03/24/17 00:00 Room Air 03/23/17 23:32 98.1 101 16 129/67 94 03/23/17 20:10 98.4 108 16 148/64 93 03/23/17 20:00 Room Air 03/23/17 16:00 98.6 99 18 134/62 95 03/23/17 14:39 20 03/23/17 12:00 98.1 96 18 115/56 93 03/23/17 09:10 20 I/O 03/23/17 03/23/17 03/23/17 03/24/17 03/24/17 03/24/17 07:00 15:00 23:00 07:00 15:00 23:00 Intake Total 1266 ml 480 ml 400 ml 1090 ml Output Total 525 ml 200 ml 300 ml Balance 1266 ml -45 ml 200 ml 790 ml Intake Oral 0 ml 480 ml 0 ml 100 ml IV Total 1266 ml 400 ml Tube Feeding 990 ml Output Urine Total 525 ml 200 ml 300 ml # Voids 0 # Bowel Movements 0 1 0 0 Result Diagram: 03/24/17 0627 03/24/17 0627 Imaging Last Impressions Chest X-Ray 03/22/17 0000 Signed Impressions: Service Date/Time: Wednesday, March 22, 2017 19:09 - CONCLUSION: Blunting of the bilateral costophrenic angles suggest small effusions. Bryson Nolan MD Objective Remarks GENERAL: NAD SKIN: Warm and dry. HEAD: Normocephalic. EYES: No scleral icterus. No injection or drainage. NECK: Supple, trachea midline. No JVD or lymphadenopathy. CARDIOVASCULAR: Regular rate and rhythm without murmurs, gallops, or rubs. RESPIRATORY: Breath sounds equal bilaterally. No accessory muscle use. GASTROINTESTINAL: Abdomen soft, non-tender, nondistended. MUSCULOSKELETAL: No cyanosis, or edema. BACK: Nontender without obvious deformity. No CVA tenderness. Procedures None A/P Problem List: (1) Hypoglycemia ICD Code: E16.2 Status: Acute (2) Hypocalcemia ICD Code: E83.51 Status: Acute (3) Generalized weakness ICD Code: R53.1 Status: Acute (4) Non-small cell carcinoma of lung ICD Code: C34.90 Status: Chronic Assessment and Plan Mr. Campbell is a 71 year-old male who presented to the ER for hypoglycemia Hypoglycemia history of type 2 diabetes on Januvia, glyburide, metformin Resume Januvia, metformin and continue to hold glyburide, s/p D5W Discussed with patient regarding when and how to resume his oral hypoglycemic agents I Further discussed with patient that only those two agents would be resumed today then consider adding a third agent if blood glucose labile and poorly controlled. Patient also advised to keep a log of blood glucose readings LINDY possibly related to PO intake and dehydration Resolved with IV fluid hydration Hypocalcemia -Calcium corrected protein improving History of Metastatic lung cancer - Consult physical therapy to avoid further debility - Continue current pain management John Awad MD March 24, 2017 08:27
--- NOTE | 2017-03-24 08:31 | HHI.DS ---
Discharge Summary Admission Date March 22, 2017 at 21:47 Discharge Date: March 24, 2017 Admitting Diagnosis Generalized weakness, recurrent hypoglycemia, hypocalcemia (1) Hypoglycemia ICD Code: E16.2 (2) Hypocalcemia ICD Code: E83.51 (3) Generalized weakness ICD Code: R53.1 (4) Non-small cell carcinoma of lung ICD Code: C34.90 Procedures None Brief History - From Admission Written by Penny Crane, acting as scribe for Dr. Ruvalcaba on 03/22/17 at 23: 43. This is a 71 year-old male with a history of Esophagitis with strictures requiring dilatation every 2-3 months, Lung cancer with bone metastases - last chemotherapy 03/03/2017, Type 2 diabetes mellitus currently on Januvia, glyburide , metformin home, Hyperlipidemia and Hypertension who presented to the ER after having hypoglycemia episode at home. Patient reports he began to feel weak, dizzy and had difficulty speaking. Patient's called EMS upon there arrival his blood sugar was noted to be 33. He was given D50 with prompt resolution of all of his symptoms. Upon arrival to the ER patient was awake and alert. While patient was in ER his blood glucose drop again to 61 and he was placed on D5NS at 125mg/h. Patient is awake and alert at this time. He reports that he has been having decreased appetite x 1 week and has had decreased oral intake. He has continued tube feeding through his feeding tube 4 8oz cans per day. Patient had new feeding tube placed recently. Patient denies any chest pain, SOB, focal weakness, slurred speech, blurred vision, nausea, vomiting, abdominal pain, fevers or chills. CBC/BMP: 03/24/17 0627 03/24/17 0627 Significant Findings Laboratory Tests Test 03/22/17 03/22/17 03/23/17 03/24/17 18:24 19:27 07:12 06:27 White Blood Count 16.9 TH/MM3 12.2 TH/MM3 12.5 TH/MM3 (4.0-11.0) (4.0-11.0) (4.0-11.0) Red Blood Count 3.38 MIL/MM3 2.87 MIL/MM3 3.14 MIL/MM3 (4.50-5.90) (4.50-5.90) (4.50-5.90) Hemoglobin 9.5 GM/DL 8.1 GM/DL 9.1 GM/DL (13.0-17.0) (13.0-17.0) (13.0-17.0) Hematocrit 29.8 % 25.2 % 27.2 % (39.0-51.0) (39.0-51.0) (39.0-51.0) Mean Corpuscular Hemoglobin 31.9 % Concent (32.0-36.0) Neutrophils (%) (Auto) 89.9 % 86.8 % 84.4 % (16.0-70.0) (16.0-70.0) (16.0-70.0) Lymphocytes (%) (Auto) 1.5 % 3.1 % 3.8 % (9.0-44.0) (9.0-44.0) (9.0-44.0) Neutrophils # (Auto) 15.2 TH/MM3 10.6 TH/MM3 10.6 TH/MM3 (1.8-7.7) (1.8-7.7) (1.8-7.7) Lymphocytes # (Auto) 0.3 TH/MM3 0.4 TH/MM3 0.5 TH/MM3 (1.0-4.8) (1.0-4.8) (1.0-4.8) Monocytes # (Auto) 1.3 TH/MM3 1.2 TH/MM3 1.4 TH/MM3 (0-0.9) (0-0.9) (0-0.9) Blood Urea Nitrogen 34 MG/DL (7-18) 25 MG/DL (7-18) 19 MG/DL (7-18) Creatinine 1.41 MG/DL (0.60-1.30) Estimat Glomerular Filtration 50 ML/MIN (>89) 71 ML/MIN (>89) Rate Calcium Level 7.1 MG/DL 7.1 MG/DL 7.4 MG/DL (8.5-10.1) (8.5-10.1) (8.5-10.1) Protein Corrected Calcium 7.3 MG/DL 7.8 MG/DL 8.0 MG/DL (8.5-10.1) (8.5-10.1) (8.5-10.1) Aspartate Amino Transf 41 U/L (15-37) (AST/SGOT) Alkaline Phosphatase 200 U/L (45-117) Albumin 2.3 GM/DL (3.4-5.0) Urine Ketones TRACE mg/dL (NEG) Urine Leukocyte Esterase TRACE (NEG) Urine WBC 6 /hpf (0-5) Urine Bacteria RARE /hpf (NONE) Monocytes (%) (Auto) 9.5 % (0.0-8.0) 11.3 % (0.0-8.0) Chloride Level 108 MEQ/L (98-107) Hemoglobin A1c 6.8 % (4.3-6.0) Total Protein 5.8 GM/DL 6.0 GM/DL (6.4-8.2) (6.4-8.2) Random Glucose 204 MG/DL (74-106) Imaging Last Impressions Chest X-Ray 03/22/17 0000 Signed Impressions: Service Date/Time: Wednesday, March 22, 2017 19:09 - CONCLUSION: Blunting of the bilateral costophrenic angles suggest small effusions. Bryson Nolan MD PE at Discharge GENERAL: NAD SKIN: Warm and dry. HEAD: Normocephalic. EYES: No scleral icterus. No injection or drainage. NECK: Supple, trachea midline. No JVD or lymphadenopathy. CARDIOVASCULAR: Regular rate and rhythm without murmurs, gallops, or rubs. RESPIRATORY: Breath sounds equal bilaterally. No accessory muscle use. GASTROINTESTINAL: Abdomen soft, non-tender, nondistended. MUSCULOSKELETAL: No cyanosis, or edema. BACK: Nontender without obvious deformity. No CVA tenderness. Hospital Course Patient admitted secondary to hypoglycemia for which he was initially treated with D5 water and all oral hypoglycemic held initially. Oral medications were subsequently restarted after D5 water was discontinued and hypoglycemic resolved. Patient was advised to keep a log of his blood glucose recordings. DVT and GI prophylaxis were provided. Cecal therapy was consulted. Prior to discharge, vitals remained stable and patient's condition improved. Pt Condition on Discharge: Stable Discharge Disposition: Disch w/ Home Health Serv Discharge Time: > 30 minutes Discharge Instructions DIET: Follow Instructions for: On Tube Feeding Activities you can perform: Regular-No Restrictions Follow up Referrals: PCP Follow-up - 1 Week Continued Medications: Aspirin DR (Aspirin 81) 81 Mg Tabdr 81 MG PO DAILY TAB Diclofenac Opth Drops (Diclofenac Opth Drops) 0.1% Soln 1 DROP RIGHT EYE QID Pain Management #2.5 Ref 0 ML Levorphanol (Levorphanol) 2 Mg Tab 4 MG PO Q6HR PRN PAIN SCALE 4 TO 10 Loperamide (Loperamide) 2 Mg Cap 2 MG PO DIRECTED One capsule after each loose stool. Not to exceed 8 capsules per day. PRN DIARRHEA Ref 0 CAP Metformin (Metformin) 1,000 Mg Tab 1000 MG PO BIDPC With meals Blood Sugar Management #60 Ref 0 TAB Morphine ER (Morphine ER) 15 Mg Tab 15 MG PO BID Pain Management Ref 0 TAB Pantoprazole (Protonix) 40 Mg Tab 40 MG PO DAILY Reflux #30 Ref 0 TAB Sitagliptin (Januvia) 100 Mg Tab 100 MG PO DAILY Blood Sugar Management #30 Ref 0 TAB Discontinued Medications: Nystatin Liq (Nystatin Liq) 100,000 unit/ml Susp 5 ML SWISH-SWAL QID THRU Days 10 BOTTLE Ondansetron (Ondansetron) 4 Mg Tab ([levaquin]) 500 MG PO DAILY John Awad MD March 24, 2017 08:31
[2017-03-24] MEDS: SODIUM CHLORIDE 0.9% FLUSH 10 ML FLUSH IV FLUSH SCH (08:40)
[2017-03-24] MEDS: PANTOPRAZOLE SOD 40 MG DELAYED RELEASE TAB PO SCH (08:40)
[2017-03-24] MEDS: ASPIRIN EC 81 MG TABEC PO SCH (08:40)
[2017-03-24] MEDS: MORPHINE SULFATE 15 MG CONTROLLED RELEASE TAB PO SCH (08:40)
[2017-03-24] MEDS ORDERED: metFORMIN HCL 500 MG TAB PO SCH (09:00)
== END 2017-03-24 11:21 | disposition home health service (06) | DRG 638 ==
LOC: NEPC 17:54 → NEDA 21:03 → OBSVTOIN 21:47 → N04A 22:37
PROVIDERS: ADMIT Hospitalist; ATTEND Hospitalist
DX: E11.649 Type 2 diabetes mellitus with hypoglycemia without coma (principal); C34.90 Malignant neoplasm of unspecified part of unspecified bronchus or lung; N17.9 Acute kidney failure, unspecified; C79.31 Secondary malignant neoplasm of brain; C79.51 Secondary malignant neoplasm of bone; C78.7 Secondary malignant neoplasm of liver and intrahepatic bile duct; K94.22 Gastrostomy infection; E86.0 Dehydration; E83.51 Hypocalcemia; R47.81 Slurred speech; E78.00 Pure hypercholesterolemia, unspecified; Z92.21 Personal history of antineoplastic chemotherapy; I10 Essential (primary) hypertension; Z87.891 Personal history of nicotine dependence; Z88.6 Allergy status to analgesic agent; Z88.2 Allergy status to sulfonamides; Z79.84 Long term (current) use of oral hypoglycemic drugs; Y83.8 Other surgical procedures as the cause of abnormal reaction of the patient, or of later complication, without mention of misadventure at the time of the procedure; Y82.8 Other medical devices associated with adverse incidents; Y92.9 Unspecified place or not applicable; E78.5 Hyperlipidemia, unspecified; Z80.0 Family history of malignant neoplasm of digestive organs; Z80.41 Family history of malignant neoplasm of ovary; Z80.7 Family history of other malignant neoplasms of lymphoid, hematopoietic and related tissues; Z80.8 Family history of malignant neoplasm of other organs or systems; Z93.1 Gastrostomy status; R42 Dizziness and giddiness; Z79.899 Other long term (current) drug therapy
CPT/HCPCS: 36415; 36430; 71010; 80048; 80053; 81001; 82948; 83036; 83735; 84155; 84443; 85025; 86850; 86900; 86901; 86920; 93005; 96365; 96366; 96375; 99215; G0463; J0610; J1170; J1626; J7030; J7050; P9016